=== PATIENT | female | born 1970 | race Hispanic/Latino ===

== ENCOUNTER 2017-01-22 10:59 | Inpatient (IN) | payer MEDICARE, OTHER ==
[2017-01-22 10:59] VITALS: BMI 14.7
--- NOTE | 2017-01-22 11:48 | C.PDOC ---
History Of Present Illness 46 y/o F c PMHx HTN, anxiety, perforated ulcer p/w abdominal pain x 3 weeks. Patient states that she had a perforated ulcer years ago and since then, she has had chronic abdominal issues. She states that she has a current episode of malabsorption, dumping syndrome, and failure to thrive. She states that last night, she had diarrhea while sleeping. She reports vomiting and can not keep any food or medications down, including her PO Zofran. She states that she is new the area and does not know the hospitals in the area. She is trying to find a new PMD, GI, and pain management physician. She states she takes Fentanyl patches prescribed by pain management Roberto but will not go to that physician' s affiliated hospital because it is too far. She specifically requests morphine or dilaudid for her acute pain and when offered morphine, states she does not think it will work because she already has it. She also reports severe migraine headaches which require benadryl. Time Seen by Provider: 01/22/17 11:32 Chief Complaint (Nursing): Abdominal Pain Past Medical History Vital Signs: Last Vital Signs Temp 98.4 F 01/22/17 11:05 Pulse 107 H 01/22/17 11:05 Resp 18 01/22/17 13:25 BP 129/88 01/22/17 13:25 Pulse Ox 97 01/22/17 13:25 - Medical History PMH: Anxiety, Asthma, Depression, HTN Denies: Chronic Kidney Disease Surgical History: Cholecystectomy, Endoscopy Family History: States: No Known Family Hx - Social History Hx Alcohol Use: No Hx Substance Use: No Review Of Systems Except As Marked, All Systems Reviewed And Found Negative. Constitutional: Negative for: Fever Cardiovascular: Negative for: Chest Pain Physical Exam - Physical Exam Additional Physical Exam Comments: Constitutional: No acute distress. Head: Normocephalic. Atraumatic. Eyes: PERRL. ENT: Dry mucous membranes. Neck: Supple. Cardiovascular: Mild tachycardia. Radial pulse 2+ bilaterally. Chest: No tenderness. Respiratory: Clear to auscultation bilaterally. GI: Soft. Epigastric tenderness. Nondistended. Midline surgical scar. Back: No CVA tenderness. Musculoskeletal: No tenderness or swelling of extremities. Skin: No rash. Neurologic: Alert, no focal deficit. ED Course And Treatment - Laboratory Results Result Diagrams: 01/22/17 13:17 01/22/17 13:57 O2 Sat by Pulse Oximetry: 100 Medical Decision Making Medical Decision Making: Patient with 2 recent visits to [facility] in the last [address] performed there: FINDINGS: Lower thorax: Atelectatic changes are identified at the bilateral lung bases. ABDOMEN: Liver: There is hepatomegaly. Mild perihepatic ascites is visualized. Mild intrahepatic biliary dilatation is visualized. Within the right hepatic lobe, there is a 0.6 cm hypodense cyst or hemangioma. Hyperdense calcifications are visualized anterior to the liver. Gallbladder and bile ducts: Surgical clips are identified within the gallbladder fossa, compatible with cholecystectomy. Pancreas: Normal contour, without acute peripancreatic stranding. Spleen: No splenomegaly. Adrenals: No mass. Kidneys and ureters: No hydronephrosis. No solid mass. Stomach and bowel: There is gastric wall thickening, suggestive of gastritis. Wall thickening is also visualized of the distal esophagus, suggestive of esophagitis, although additional pathology cannot be excluded. Surgical clips are identified within the upper abdomen and adjacent to the stomach. Appendix: The appendix is not visualized. PELVIS: Bladder: No mass. Reproductive: The uterus is incompletely visualized, which may be postoperative. There is a hypodense suspected nabothian cyst at the level of the cervix measuring 1.0 x 0.8 cm. ABDOMEN and PELVIS: Intraperitoneal space: No free air. Bones/joints: No acute fracture. Vasculature: There is heterogeneous enhancement of a vessel inferior to the left renal vein, likely due to the timing of injection. There is dilatation of the splenic vein and portal vein, suggestive of portal hypertension. Lymph nodes: There is a mildly enlarged left upper para-aortic lymph node measuring 1.7 x 0.6 cm. This is nonspecific as to etiology. No significant pelvic lymphadenopathy. IMPRESSION: 1. There is hepatomegaly. Mild perihepatic ascites is visualized. Mild intrahepatic biliary dilatation is visualized. Correlation with serum bilirubin is visualized. 2. There is gastric wall thickening, suggestive of gastritis. Wall thickening is also visualized of the distal esophagus, suggestive of esophagitis, although additional pathology cannot be excluded. 3. There is dilatation of the splenic vein and portal vein, suggestive of portal hypertension. 4. Within the right hepatic lobe,, there is a 0.6 cm hypodense cyst or hemangioma. 5. There is a mildly enlarged left upper para-aortic lymph node measuring 1.7 x 0.6 cm. This is nonspecific as to etiology. 6. Additional CT findings described above. No surgical emergencies found on CT for this pain that has been ongoing for 3 weeks as per patient. I informed patient that I will treat dehydration and pain but will not be using opiate medication. Patient with hemeoccult positive stool, history of ulcers, tachycardic on arrival. Will require further evaluation of bleeding source and treatment. At this time, no indication for transfusion. 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 Disposition - Disposition Disposition: HOSPITALIZED Disposition Time: 14:20 Condition: FAIR Forms: [facility] (Palestinian) - Clinical Impression Clinical Impression: GI bleed, Intractable vomiting
[2017-01-22] MEDS ORDERED: DiphenhydrAMINE 50 mg/ml Inj IVP STA (12:21)
[2017-01-22] MEDS ORDERED: Sodium Chloride 0.9% 1,000 ML IV STA (12:21)
[2017-01-22] MEDS ORDERED: Sodium Chloride 0.9% 1,000 ML ONE (12:39)
[2017-01-22] MEDS ORDERED: DiphenhydrAMINE 50 mg/ml Inj ONE (12:40)
[2017-01-22 13:42] LABS: RBC URINE < 1 /hpf (0-3); URINE BILIRUBIN NEGATIVE (NEGATIVE); URINE BLOOD NEGATIVE (NEGATIVE); URINE CALCIUM OXALATE CRYSTALS MOD /hpf (<OCC); URINE COLOR Yellow (YELLOW); URINE GLUCOSE (UA) NORMAL (Normal); URINE KETONE NEGATIVE (NEGATIVE); URINE LEUKOCYTE ESTERASE NEG Leu/uL (Negative); URINE PROTEIN NEGATIVE (NEGATIVE); URINE UROBILINOGEN NORMAL mg/dL (0.2-1.0); WBC URINE 1 /hpf (0-5)
[2017-01-22 13:46] LABS: BASO % 0.7 % (0.0-2.0); EOS # 0.1 K/uL (0.0-0.7); EOS % 2.2 % (0.0-4.0); HEMATOCRIT 44.5 % (34.0-47.0); LYMPH # 1.6 K/uL (1.0-4.3); LYMPH % 24.1 % (20.0-40.0); MEAN CELL VOLUME 95.6 fL (81.0-99.0); MEAN CORPUSCULAR HEMOGLOBIN 31.4 pg (27.0-31.0); MEAN CORPUSCULAR HGB CONC 32.8 g/dL (33.0-37.0); MONO # 0.4 K/uL (0.0-0.8); NRBC % 0.1 % (0.0-2.0); RED CELL DISTRIBUTION WIDTH 15.9 % (11.5-14.5); WHITE BLOOD COUNT 6.5 K/uL (4.8-10.8)
[2017-01-22 14:15] LABS: CHLORIDE 106 mmol/L (98-107); POTASSIUM 3.1 mmol/L (3.6-5.2); SODIUM 145 mmol/L (132-148)
[2017-01-22 14:17] LABS: AST/SGOT 20 U/L (14-36); BILIRUBIN,TOTAL 0.4 mg/dL (0.2-1.3); CARBON DIOXIDE 26 mmol/L (22-30); GFR AFRICAN-AMERICAN > 60
[2017-01-22 14:18] LABS: ALKALINE PHOSPHATASE 86 U/L (38-126); ALT/SGPT 23 U/L (9-52); BLOOD UREA NITROGEN 12 mg/dL (7-17); CALCIUM 8.6 mg/dl (8.6-10.4); GLUCOSE,RANDOM 70 mg/dL (65-105); TOTAL PROTEIN 6.2 g/dL (6.3-8.3)
--- NOTE | 2017-01-22 15:16 | RAD ---
HISTORY: gi bleed COMPARISON: No prior. FINDINGS: LUNGS: Linear atelectasis delete or fibrosis in the medial left base. No acute infiltrate or pleural effusion is identified. PLEURA: No significant pleural effusion identified, no pneumothorax apparent. CARDIOVASCULAR: Prominent cardiac silhouette is appreciated although this is portable technique. No pulmonary vascular derangement identified. OSSEOUS STRUCTURES: No significant abnormalities. VISUALIZED UPPER ABDOMEN: Normal. OTHER FINDINGS: None. IMPRESSION: Linear atelectasis fibrosis is noted at the medial left base. Prominent cardiac silhouette identified. No pulmonary vascular derangement.
[2017-01-22] MEDS: DiphenhydrAMINE 50 mg/ml Inj IVP PRN ×2 (17:31→23:03)
[2017-01-22] MEDS: Potassium Chloride 20 mEq ER Tab PO SCH (23:04)
[2017-01-23] MEDS: Potassium Chloride 20 mEq ER Tab PO SCH (04:30)
[2017-01-23] MEDS: DiphenhydrAMINE 50 mg/ml Inj IVP PRN ×5 (04:30→23:19)
[2017-01-23] MEDS ORDERED: Mometasone 220 mcg/puff-14 puff Inh IH SCH (08:00)
[2017-01-23 08:36] LABS: CHLORIDE 106 mmol/L (98-107); POTASSIUM 3.6 mmol/L (3.6-5.2); SODIUM 145 mmol/L (132-148)
[2017-01-23 08:38] LABS: AST/SGOT 20 U/L (14-36); BILIRUBIN,TOTAL 0.3 mg/dL (0.2-1.3); CARBON DIOXIDE 27 mmol/L (22-30); GFR AFRICAN-AMERICAN > 60
[2017-01-23 08:39] LABS: ALKALINE PHOSPHATASE 81 U/L (38-126); ALT/SGPT 20 U/L (9-52); BLOOD UREA NITROGEN 7 mg/dL (7-17); CALCIUM 8.5 mg/dl (8.6-10.4); GLUCOSE,RANDOM 63 mg/dL (65-105); TOTAL PROTEIN 5.7 g/dL (6.3-8.3)
[2017-01-23] MEDS: Sucralfate 1 gm/10 ml Oral Susp UD PO SCH (09:19)
--- NOTE | 2017-01-23 15:12 | CP.PCM.HP ---
Present on Admission - Present on Admission Any Indicators Present on Admission: No Past Patient History - Infectious Disease Hx of Infectious Diseases: None - Past Medical History & Family History Past Medical History?: Yes - Past Social History Smoking Status: Heavy Smoker > 10 Cigarettes Daily - CARDIAC Hx Hypertension: Yes - PULMONARY Hx Asthma: Yes - NEUROLOGICAL Hx Neurological Disorder: No - HEENT Hx HEENT Problems: Yes Other/Comment: dry eyes - RENAL Hx Chronic Kidney Disease: No - ENDOCRINE/METABOLIC Hx Endocrine Disorders: No - HEMATOLOGICAL/ONCOLOGICAL Hx Blood Disorders: No - INTEGUMENTARY Hx Dermatological Problems: No - MUSCULOSKELETAL/RHEUMATOLOGICAL Hx Musculoskeletal Disorders: Yes Hx Back Pain: Yes Hx Falls: No - GASTROINTESTINAL Hx Gastrointestinal Disorders: Yes Other/Comment: endoscopy, "removed half my stomach" - GENITOURINARY/GYNECOLOGICAL Hx Genitourinary Disorders: No - PSYCHIATRIC Hx Anxiety: Yes Hx Depression: Yes Hx Substance Use: No - SURGICAL HISTORY Hx Cholecystectomy: Yes - ANESTHESIA Hx Anesthesia: Yes Hx Anesthesia Reactions: No Meds Allergies/Adverse Reactions: Allergies Allergy/AdvReac Type Severity Reaction Status Date / Time vancomycin Allergy ANAPHYLAXIS Verified 01/22/17 11:09 Results - Vital Signs Recent Vital Signs: Last Vital Signs Temp 97.5 F L 01/23/17 07:00 Pulse 85 01/23/17 07:00 Resp 21 01/23/17 07:00 BP 129/86 01/23/17 07:00 Pulse Ox 97 01/23/17 07:00 - Labs Result Diagrams: 01/22/17 13:17 01/23/17 08:10 Labs: Laboratory Results - last 24 hr 01/23/17 08:10 Sodium 145 Potassium 3.6 Chloride 106 Carbon Dioxide 27 Anion Gap 15 BUN 7 Creatinine 0.4 L Est GFR ( Amer) > 60 Est GFR (Non-Af Amer) > 60 Random Glucose 63 L Calcium 8.5 L Total Bilirubin 0.3 AST 20 ALT 20 Alkaline Phosphatase 81 Total Protein 5.7 L Albumin 2.9 L Globulin 2.8 Albumin/Globulin Ratio 1.0 Assessment & Plan - Assessment and Plan (Free Text) Plan: GI consultations Protonix Lovenox Zofran IV CT abdomen stat Cipro IV Flagyl IV Medication as ordered Liquid diet Monitor the patient's for abdominal pain Continue pain medications
[2017-01-23] MEDS ORDERED: Ciprofloxacin 400mg/200ml D5W 400 MG/200 ML BAG IVPB SCH (15:15)
[2017-01-23] MEDS: Sodium Chloride 0.9% 1,000 ML IV SCH (15:53)
[2017-01-23] MEDS: Ciprofloxacin 400mg/200ml D5W 400 MG/200 ML BAG IVPB SCH (16:52)
[2017-01-23] MEDS: metroNIDAZOLE IV 500 mg/100 ml 500 MG/100 ML BAG IVPB SCH ×2 (16:52→21:49)
[2017-01-24] MEDS ORDERED: DiphenhydrAMINE 50 mg/ml Inj IVP STA (01:10)
[2017-01-24] MEDS: Ciprofloxacin 400mg/200ml D5W 400 MG/200 ML BAG IVPB SCH ×2 (04:18→16:40)
[2017-01-24] MEDS: DiphenhydrAMINE 50 mg/ml Inj IVP PRN ×4 (04:19→21:01)
[2017-01-24] MEDS: metroNIDAZOLE IV 500 mg/100 ml 500 MG/100 ML BAG IVPB SCH ×3 (05:54→21:02)
[2017-01-24 08:10] LABS: BASO # 0.1 K/uL (0.0-0.2); BASO % 1.1 % (0.0-2.0); EOS # 0.2 K/uL (0.0-0.7); EOS % 2.6 % (0.0-4.0); LYMPH # 1.8 K/uL (1.0-4.3); LYMPH % 30.4 % (20.0-40.0); MEAN CELL VOLUME 95.6 fL (81.0-99.0); MEAN CORPUSCULAR HEMOGLOBIN 31.2 pg (27.0-31.0); MEAN CORPUSCULAR HGB CONC 32.7 g/dL (33.0-37.0); MEAN PLATELET VOLUME 7.3 fL (7.2-11.7); MONO # 0.4 K/uL (0.0-0.8); MONO % 6.9 % (0.0-10.0); RED CELL DISTRIBUTION WIDTH 15.2 % (11.5-14.5); WHITE BLOOD COUNT 5.8 K/uL (4.8-10.8)
--- NOTE | 2017-01-24 08:34 | CP.PCM.CON ---
<Ken Sweeney - Last Filed: 01/24/17 12:50> History of Present Illness - History of Present Illness History of Present Illness: PGY4 Initial GI Consult Note Josette Keys is a 46-year-old female with a past medical history of hypertension, chronic anemia, gastric and esophageal ulcers, gastric perforation with multiple abdominal surgery, and failure to thrive who comes to the emergency room with complaint of left-sided abdominal pain for weeks. She reports that the sharp pain that starts in the epigastric area and radiates to her left upper back and moves up to her shoulder, the intensity of the pain was increasing since onset. She also has been unable to tolerate any oral intake, has been having nausea and vomiting and denies any hematemesis, though she does have a hx of poor PO intake and failure to thrive. She also complains of diarrhea no reports of any melena or bright red blood per rectum. She notes that she has been diagnoised with having dumping syndrome in the past and she normally has x4 loose BM daily. The patient had multiple transfer from nursing homes and hospitals in [facility]. As for her GI, she reports that she was being followed by Dr. Chapa in [place], [place]. She states that she had an endoscopy 2 months ago in and was found to have esophageal ulcers and gastric ulcer that required cauterization therapy. She has been taking Carafate daily, Pepcid and Nexium, and has been on Reglan daily for 5 years. She does report about an 8 pound weight loss. Her last colonoscopy was 4-5 years ago and she was told she had colitis. She was recently admitted to [facility] for similiar complaint, but states that she left because she was not given proper meds at the appropriate times. 01/13/17 CT scan of abdomen and pelvis with oral contrast shows hepatomegaly, mild perihepatic ascites is visualized, mild intrahepatic biliary dilatation is visualized, within the right hepatic lobe there is a 0.6 cm hypodense cyst or hemangioma. Stomach and bowel shows gastric wall thickening, suggestive of gastritis. There is also wall thickening in the distal esophagus, suggestive of esophagitis. Surgical clips are identified within the upper lobe and adjacent to the stomach. Also there is mildly enlarged left upper para-aortic lymph nodes measuring 1.7 x 0.6 cm this is nonspecific as to etiology. No significant pelvic lymphadenopathy. PMHx: Asthma, hypertension, chronic anemia, gastric and esophageal ulcers, weight loss,? Malabsorption, chronic pain, patient is on fentanyl patches PSHx: Partial gastrectomy, patient is unsure if it's a Billroth I or 2, multiple exploratory laparotomies with bowel resection/repair, cholecystectomy Family history: Mother: Hypertension, COPD, [place] Social history: Positive for smoking, denies EtOH or substance abuse Review of systems: 12- point ROS conducted, other than whats previously mentioned above, its otherwise neg Endo Hx: EGD 10/2016 in [facility]: esophagitis and gastric ulcer Colonoscopy 4-5 years ago: colitis? / Past Patient History - Infectious Disease Hx of Infectious Diseases: None - Past Medical History & Family History Past Medical History?: Yes - Past Social History Smoking Status: Heavy Smoker > 10 Cigarettes Daily - CARDIAC Hx Hypertension: Yes - PULMONARY Hx Asthma: Yes - NEUROLOGICAL Hx Neurological Disorder: No - HEENT Hx HEENT Problems: Yes Other/Comment: dry eyes - RENAL Hx Chronic Kidney Disease: No - ENDOCRINE/METABOLIC Hx Endocrine Disorders: No - HEMATOLOGICAL/ONCOLOGICAL Hx Blood Disorders: No - INTEGUMENTARY Hx Dermatological Problems: No - MUSCULOSKELETAL/RHEUMATOLOGICAL Hx Musculoskeletal Disorders: Yes Hx Back Pain: Yes Hx Falls: No - GASTROINTESTINAL Hx Gastrointestinal Disorders: Yes Other/Comment: endoscopy, "removed half my stomach" - GENITOURINARY/GYNECOLOGICAL Hx Genitourinary Disorders: No - PSYCHIATRIC Hx Anxiety: Yes Hx Depression: Yes Hx Substance Use: No - SURGICAL HISTORY Hx Cholecystectomy: Yes - ANESTHESIA Hx Anesthesia: Yes Hx Anesthesia Reactions: No Meds Allergies/Adverse Reactions: Allergies Allergy/AdvReac Type Severity Reaction Status Date / Time vancomycin Allergy ANAPHYLAXIS Verified 01/22/17 11:09 - Medications Medications: Current Medications Atenolol (Tenormin) 25 mg PO DAILY [facility] Last Admin: 01/23/17 09:20 Dose: 25 mg Clotrimazole (Mycelex Hiral) 10 mg PO TID [facility] Last Admin: 01/23/17 17:33 Dose: 10 mg Diphenhydramine HCl (Benadryl) 25 mg IVP Q4H PRN PRN Reason: itchiness Last Admin: 01/24/17 08:17 Dose: 25 mg Famotidine (Pepcid) 20 mg PO DAILY [facility] Last Admin: 01/23/17 09:19 Dose: 20 mg Fentanyl (Duragesic) 1 patch TD Q72H [facility] Gabapentin (Neurontin) 400 mg PO TID [facility] Last Admin: 01/23/17 17:32 Dose: 400 mg Hydromorphone HCl (Dilaudid) 2 mg IVP Q4H PRN PRN Reason: pain Last Admin: 01/24/17 08:16 Dose: 2 mg Metronidazole (Flagyl) 500 mg in 100 mls @ 100 mls/hr IVPB Q8 [facility] Last Admin: 01/24/17 05:54 Dose: 100 mls/hr Sodium Chloride (Sodium Chloride 0.9%) 1,000 mls @ 60 mls/hr IV .[id number] [facility] Last Admin: 01/23/17 15:53 Dose: 60 mls/hr Ciprofloxacin (Cipro 400mg/200ml Dsw) 400 mg in 200 mls @ 133 mls/hr IVPB Q12H [facility] Last Admin: 01/24/17 04:18 Dose: 133 mls/hr Lorazepam (Ativan) 2 mg PO TID [facility] Last Admin: 01/23/17 17:32 Dose: 2 mg Mometasone Furoate (Asmanex Twisthaler 220 Mcg) 1 puff IH RQ12 [facility] Nicotine (Nicoderm Cq) 1 patch TD DAILY [facility] Last Admin: 01/23/17 09:20 Dose: 1 patch Ondansetron HCl (Zofran Inj) 4 mg IVP Q8H PRN PRN Reason: nausea and vomiting Last Admin: 01/24/17 01:40 Dose: 4 mg Pantoprazole Sodium (Protonix Inj) 40 mg IVP DAILY [facility] Last Admin: 01/23/17 09:18 Dose: 40 mg Pneumococcal Polyvalent Vaccine (Pneumovax 23 Vaccine) 0.5 ml IM .ONCE ONE Stop: 01/24/17 10:01 Spironolactone (Aldactone) 25 mg PO DAILY [facility] Last Admin: 01/23/17 09:19 Dose: 25 mg Sucralfate (Carafate Oral Susp) 1 gm PO DAILY [facility] Last Admin: 01/23/17 09:19 Dose: 1 gm Trazodone HCl (Desyrel) 150 mg PO DAILY [facility] Last Admin: 01/23/17 09:27 Dose: Not Given Physical Exam - Constitutional Appears: Unkempt, Older Than Stated Age, Cachectic, Chronically Ill - Head Exam Head Exam: ATRAUMATIC, NORMOCEPHALIC - Eye Exam Eye Exam: Normal appearance - ENT Exam ENT Exam: Mucous Membranes Dry - Cardiovascular Exam Cardiovascular Exam: REGULAR RHYTHM, +S1, +S2 - GI/Abdominal Exam GI & Abdominal Exam: Normal Bowel Sounds, Soft. absent: Distended, Firm, Guarding, Organomegaly, Rigid, Tenderness - Neurological Exam Neurological exam: Alert, Oriented x3 - Psychiatric Exam Psychiatric exam: Depressed, Flat Affect - Skin Skin Exam: Dry, Intact, Normal Color, Warm Results - Vital Signs Recent Vital Signs: Last Vital Signs Temp 98.2 F 01/24/17 07:00 Pulse 80 01/24/17 07:00 Resp 20 01/24/17 07:00 BP 134/80 01/24/17 07:00 Pulse Ox 100 01/24/17 07:00 - Labs Result Diagrams: 01/24/17 07:48 01/24/17 07:48 Labs: Laboratory Results - last 24 hr 01/23/17 01/24/17 01/24/17 08:10 07:48 08:09 WBC 5.8 RBC 4.92 Hgb 15.4 Hct 47.0 MCV 95.6 MCH 31.2 H MCHC 32.7 L RDW 15.2 H Plt Count 202 MPV 7.3 Neut % (Auto) 59.0 Lymph % (Auto) 30.4 Falls % (Auto) 6.9 Eos % (Auto) 2.6 Baso % (Auto) 1.1 Neut # 3.4 Lymph # 1.8 Falls # 0.4 Eos # 0.2 Baso # 0.1 Sodium 145 Potassium 3.6 Chloride 106 Carbon Dioxide 27 Anion Gap 15 BUN 7 Creatinine 0.4 L Est GFR ( Amer) > 60 Est GFR (Non-Af Amer) > 60 Random Glucose 63 L Calcium 8.5 L Total Bilirubin 0.3 AST 20 ALT 20 Alkaline Phosphatase 81 Total Protein 5.7 L Albumin 2.9 L Globulin 2.8 Albumin/Globulin Ratio 1.0 Urine HCG, Qual Negative Assessment & Plan - Assessment and Plan (Free Text) Assessment: Josette Keys is a 46F w/ sig comorbidities including failure to thrive, esophagitis, gastic ulcers, partial gastrectomy who presents with complaints of generalized abd pain, weakness, and decreased appetite. Pt was found to have + FOBT but there was no report of any GI bleed. EGD was performed today; revealed severe esophagitis with white plaques likely 2 /2 candidiasis, severe gastritis with large ulcers in the body and at the anastomotic site. Also noted was a foreign body (bay leaf) in the stomach Esophagitis likely 2/2 Candidiasis Severe Gastritis Large gastric ulcer in the body and at anastomotic site Failure to thrive Acute on chronic Diarrhea, etiology unknown, r/o infectious Malnutrition Nausea hx of partial gastrectomy, 2/2 to porforated gastric ulcer? Plan: -Pain management as per primary team -Recommend nutrition consult -start protonix IV BID 40mg -start diflucan 200mg IV now then 100mg daily -Add reglan TID before meals -advance diet to regular -will need records from previous GI doctor -will hold on any additional imaging -continue abx as per primary -will get stool cultures, r/o c.diff, calprotectin, D/W Dr. Bernal <Dolores HERNANDEZ,Raman - Last Filed: 01/24/17 18:32> Meds - Medications Medications: Current Medications Atenolol (Tenormin) 25 mg PO DAILY [facility] Last Admin: 01/24/17 09:53 Dose: 25 mg Clotrimazole (Mycelex Hiral) 10 mg PO TID [facility] Last Admin: 01/24/17 14:28 Dose: Not Given Diphenhydramine HCl (Benadryl) 25 mg IVP Q4H PRN PRN Reason: itchiness Last Admin: 01/24/17 12:46 Dose: 25 mg Fentanyl (Duragesic) 1 patch TD Q72H [facility] Last Admin: 01/24/17 10:04 Dose: 1 patch Fentanyl (Duragesic) 1 patch TD Q72H [facility] Last Admin: 01/24/17 14:59 Dose: 1 patch Gabapentin (Neurontin) 400 mg PO TID [facility] Last Admin: 01/24/17 18:00 Dose: 400 mg Hydromorphone HCl (Dilaudid) 2 mg IVP Q4H PRN PRN Reason: pain Last Admin: 01/24/17 16:34 Dose: 2 mg Metronidazole (Flagyl) 500 mg in 100 mls @ 100 mls/hr IVPB Q8 [facility] Last Admin: 08/28/17 14:28 Dose: Not Given Sodium Chloride (Sodium Chloride 0.9%) 1,000 mls @ 60 mls/hr IV .[id number] [facility] Last Admin: 01/24/17 09:55 Dose: Not Given Ciprofloxacin (Cipro 400mg/200ml Dsw) 400 mg in 200 mls @ 133 mls/hr IVPB Q12H [facility] Last Admin: 01/24/17 16:40 Dose: 133 mls/hr Fluconazole (Diflucan Iv 200 Mg/100 Ml Ns) 100 mls @ 100 mls/hr IVPB DAILY [facility] Lorazepam (Ativan) 2 mg PO TID [facility] Last Admin: 01/24/17 17:59 Dose: 2 mg Metoclopramide HCl (Reglan) 10 mg IVP ACHS [facility] Last Admin: 01/24/17 16:30 Dose: 10 mg Mometasone Furoate (Asmanex Twisthaler 220 Mcg) 1 puff IH RQ12 [facility] Nicotine (Nicoderm Cq) 1 patch TD DAILY [facility] Last Admin: 01/24/17 09:54 Dose: 1 patch Ondansetron HCl (Zofran Inj) 4 mg IVP Q8H PRN PRN Reason: nausea and vomiting Last Admin: 01/24/17 16:31 Dose: 4 mg Pantoprazole Sodium (Protonix Inj) 40 mg IVP Q12H [facility] Last Admin: 01/24/17 14:28 Dose: Not Given Spironolactone (Aldactone) 25 mg PO DAILY [facility] Last Admin: 01/24/17 10:13 Dose: Not Given Sucralfate (Carafate Oral Susp) 1 gm PO DAILY [facility] Last Admin: 01/24/17 16:34 Dose: Not Given Trazodone HCl (Desyrel) 150 mg PO DAILY [facility] Last Admin: 01/24/17 12:35 Dose: Not Given Results - Vital Signs Recent Vital Signs: Last Vital Signs Temp 98.2 F 01/24/17 16:00 Pulse 87 01/24/17 16:00 Resp 20 01/24/17 16:00 BP 125/76 01/24/17 16:00 Pulse Ox 97 01/24/17 16:00 - Labs Result Diagrams: 01/24/17 07:48 01/24/17 07:48 Labs: Laboratory Results - last 24 hr 01/24/17 01/24/17 01/24/17 07:48 07:48 08:09 WBC 5.8 RBC 4.92 Hgb 15.4 Hct 47.0 MCV 95.6 MCH 31.2 H MCHC 32.7 L RDW 15.2 H Plt Count 202 MPV 7.3 Neut % (Auto) 59.0 Lymph % (Auto) 30.4 Falls % (Auto) 6.9 Eos % (Auto) 2.6 Baso % (Auto) 1.1 Neut # 3.4 Lymph # 1.8 Falls # 0.4 Eos # 0.2 Baso # 0.1 Sodium 138 Potassium 3.8 Chloride 102 Carbon Dioxide 28 Anion Gap 12 BUN 3 L Creatinine 0.4 L Est GFR ( Amer) > 60 Est GFR (Non-Af Amer) > 60 Random Glucose 64 L Calcium 8.0 L Total Bilirubin 0.5 AST 21 ALT 25 Alkaline Phosphatase 78 Total Protein 5.6 L Albumin 2.8 L Globulin 2.8 Albumin/Globulin Ratio 1.0 Urine HCG, Qual Negative Attending/Attestation - Attestation I have personally seen and examined this patient.: Yes I have fully participated in the care of the patient.: Yes I have reviewed all pertinent clinical information: Yes Notes (Text): 01/24/17 18:17 Patient seen and examined in endoscopy this morning. This is a 46 yr old F with significant comorbidities including failure to thrive, esophagitis, gastic ulcers with perforations s/p partial gastrectomy who presents with complaints of generalized abdominal pain, weakness, and decreased appetite. An urgent EGD was performed that revealed Grade c esophagitis with white plaques likely 2/2 candidiasis, large deep ulcers in the body and at the anastomotic site s/p biopsy. Also noted was a foreign body (bay leaf) in the fundus that was removed. Patient has low BMI, low albumin and is clearly malnourished. Will work up for malnourishment with stool infectious work up, start anti fungals for columb[place] and PPI bid for gastric ulcers. Start carafate and clear liquid diet. Avoid NSAID and follow H pylori biopsies. If able to tolerate diet can be discharged with outpatient follow up with previous GI and machine maintenance technician. Protein intake should be atleast 10% of daily caloric intake. Diet should be high in fiber and protein and low in carbohydrates . May give trail of octretide SQ tid for symptomatic relief of dumping syndrome or a trail of cholestyramine may be beneficial. Will follow closely
[2017-01-24 08:40] LABS: CHLORIDE 102 mmol/L (98-107)
[2017-01-24 08:41] LABS: POTASSIUM 3.8 mmol/L (3.6-5.2); SODIUM 138 mmol/L (132-148)
[2017-01-24 08:43] LABS: BILIRUBIN,TOTAL 0.5 mg/dL (0.2-1.3); CARBON DIOXIDE 28 mmol/L (22-30); GFR AFRICAN-AMERICAN > 60
[2017-01-24 08:44] LABS: ALKALINE PHOSPHATASE 78 U/L (38-126); ALT/SGPT 25 U/L (9-52); AST/SGOT 21 U/L (14-36); BLOOD UREA NITROGEN 3 mg/dL (7-17); GLUCOSE,RANDOM 64 mg/dL (65-105); TOTAL PROTEIN 5.6 g/dL (6.3-8.3)
[2017-01-24] MEDS ORDERED: Iodixanol 320 MG/ML 100 ML BOTTLE IV ONE (08:55)
[2017-01-24] MEDS: Sucralfate 1 gm/10 ml Oral Susp UD PO SCH ×2 (09:54→16:34)
[2017-01-24] MEDS: Sodium Chloride 0.9% 1,000 ML IV SCH (09:55)
[2017-01-24] MEDS ORDERED: Pneumococcal 23-Valent Vaccine IM ONE (10:00)
[2017-01-24] MEDS ORDERED: Lactated Ringer's 500 ML IV ONE (11:21)
[2017-01-24] MEDS ORDERED: Fluconazole IV 200mg/100 ml NS 100 ML IVPB ONE (12:15)
[2017-01-24 12:36] VITALS: RESP 20
[2017-01-24] MEDS ORDERED: DiphenhydrAMINE 50 mg/ml Inj IVP ONE (15:45)
[2017-01-24 16:26] VITALS: O2SAT 97
--- NOTE | 2017-01-24 18:41 | CP.PCM.PN ---
Subjective - Date & Time of Evaluation Date of Evaluation: 01/24/17 Time of Evaluation: 09:00 - Subjective Subjective: clinically same Objective - Vital Signs/Intake and Output Vital Signs (last 24 hours): Temp Pulse Resp BP Pulse Ox 98.2 F 87 20 125/76 97 01/24/17 16:00 01/24/17 16:00 01/24/17 16:00 01/24/17 16:00 01/24/17 16:00 Intake and Output: 01/24/17 01/24/17 06:59 18:59 Intake Total 1320 300 Output Total 1300 700 Balance 20 -400 - Medications Medications: Current Medications Atenolol (Tenormin) 25 mg PO DAILY [facility] Last Admin: 01/24/17 09:53 Dose: 25 mg Clotrimazole (Mycelex Hiral) 10 mg PO TID [facility] Last Admin: 01/24/17 14:28 Dose: Not Given Diphenhydramine HCl (Benadryl) 25 mg IVP Q4H PRN PRN Reason: itchiness Last Admin: 01/24/17 12:46 Dose: 25 mg Fentanyl (Duragesic) 1 patch TD Q72H [facility] Last Admin: 01/24/17 10:04 Dose: 1 patch Fentanyl (Duragesic) 1 patch TD Q72H [facility] Last Admin: 01/24/17 14:59 Dose: 1 patch Gabapentin (Neurontin) 400 mg PO TID [facility] Last Admin: 01/24/17 18:00 Dose: 400 mg Hydromorphone HCl (Dilaudid) 2 mg IVP Q4H PRN PRN Reason: pain Last Admin: 01/24/17 16:34 Dose: 2 mg Metronidazole (Flagyl) 500 mg in 100 mls @ 100 mls/hr IVPB Q8 [facility] Last Admin: 01/24/17 14:28 Dose: Not Given Sodium Chloride (Sodium Chloride 0.9%) 1,000 mls @ 60 mls/hr IV .[id number] [facility] Last Admin: 01/24/17 09:55 Dose: Not Given Ciprofloxacin (Cipro 400mg/200ml Dsw) 400 mg in 200 mls @ 133 mls/hr IVPB Q12H [facility] Last Admin: 01/24/17 16:40 Dose: 133 mls/hr Fluconazole (Diflucan Iv 200 Mg/100 Ml Ns) 100 mls @ 100 mls/hr IVPB DAILY [facility] Lorazepam (Ativan) 2 mg PO TID [facility] Last Admin: 01/24/17 17:59 Dose: 2 mg Metoclopramide HCl (Reglan) 10 mg IVP ACHS [facility] Last Admin: 01/24/17 16:30 Dose: 10 mg Mometasone Furoate (Asmanex Twisthaler 220 Mcg) 1 puff IH RQ12 [facility] Nicotine (Nicoderm Cq) 1 patch TD DAILY [facility] Last Admin: 01/24/17 09:54 Dose: 1 patch Ondansetron HCl (Zofran Inj) 4 mg IVP Q8H PRN PRN Reason: nausea and vomiting Last Admin: 01/24/17 16:31 Dose: 4 mg Pantoprazole Sodium (Protonix Inj) 40 mg IVP Q12H [facility] Last Admin: 01/24/17 14:28 Dose: Not Given Spironolactone (Aldactone) 25 mg PO DAILY [facility] Last Admin: 01/24/17 10:13 Dose: Not Given Sucralfate (Carafate Oral Susp) 1 gm PO DAILY [facility] Last Admin: 01/24/17 16:34 Dose: Not Given Trazodone HCl (Desyrel) 150 mg PO DAILY [facility] Last Admin: 01/24/17 12:35 Dose: Not Given - Labs Labs: 01/24/17 07:48 01/24/17 07:48 - Constitutional Appears: Well - Head Exam Head Exam: ATRAUMATIC, NORMAL INSPECTION, NORMOCEPHALIC - Eye Exam Eye Exam: EOMI, Normal appearance, PERRL Pupil Exam: NORMAL ACCOMODATION, PERRL - ENT Exam ENT Exam: Mucous Membranes Moist, Normal Exam - Neck Exam Neck Exam: Full ROM, Normal Inspection. absent: Lymphadenopathy - Respiratory Exam Respiratory Exam: Decreased Breath Sounds - Cardiovascular Exam Cardiovascular Exam: REGULAR RHYTHM, +S1, +S2 - GI/Abdominal Exam GI & Abdominal Exam: Soft, Diminished Bowel Sounds - Rectal Exam Rectal Exam: Deferred
[2017-01-25 00:23] VITALS: BP 130/89; PULSE 98; TEMP 97.1
[2017-01-25] MEDS ORDERED: Fluconazole IV 200mg/100 ml NS 100 ML IVPB SCH (10:00)
== END 2017-01-25 00:45 | disposition left against medical advice (07) | DRG 381 ==
LOC: C.ER 10:59 → C.9E 14:36 → C.3T 15:34
PROVIDERS: ADMIT Internal Medicine Nephrology; ATTEND Internal Medicine Nephrology
PROC: 0DB98ZX Excision of Duodenum, Via Natural or Artificial Opening Endoscopic, Diagnostic (ICD-10-PCS; 2017-01-24)
PROC: 0DB68ZX Excision of Stomach, Via Natural or Artificial Opening Endoscopic, Diagnostic (ICD-10-PCS; 2017-01-24)
PROC: 0DC68ZZ Extirpation of Matter from Stomach, Via Natural or Artificial Opening Endoscopic (ICD-10-PCS; 2017-01-24)
PROC: 0DB28ZX Excision of Middle Esophagus, Via Natural or Artificial Opening Endoscopic, Diagnostic (ICD-10-PCS; principal; 2017-01-24 11:30)
DX: K28.3 Acute gastrojejunal ulcer without hemorrhage or perforation (principal); B37.81 Candidal esophagitis; R18.8 Other ascites; E46 Unspecified protein-calorie malnutrition; T18.2XXA Foreign body in stomach, initial encounter; K76.6 Portal hypertension; K91.1 Postgastric surgery syndromes; K25.3 Acute gastric ulcer without hemorrhage or perforation; K29.70 Gastritis, unspecified, without bleeding; R16.0 Hepatomegaly, not elsewhere classified; N88.8 Other specified noninflammatory disorders of cervix uteri; E86.0 Dehydration; D18.03 Hemangioma of intra-abdominal structures; R59.0 Localized enlarged lymph nodes; R00.0 Tachycardia, unspecified; K52.9 Noninfective gastroenteritis and colitis, unspecified; F17.210 Nicotine dependence, cigarettes, uncomplicated; I10 Essential (primary) hypertension; D64.9 Anemia, unspecified; G43.909 Migraine, unspecified, not intractable, without status migrainosus; J45.909 Unspecified asthma, uncomplicated; K29.80 Duodenitis without bleeding; R62.7 Adult failure to thrive; K28.7 Chronic gastrojejunal ulcer without hemorrhage or perforation; K44.9 Diaphragmatic hernia without obstruction or gangrene; K25.7 Chronic gastric ulcer without hemorrhage or perforation; Z82.49 Family history of ischemic heart disease and other diseases of the circulatory system; Z90.3 Acquired absence of stomach [part of]

== ENCOUNTER 2017-01-25 20:07 | Observation (INO) | payer MEDICARE, OTHER ==
[2017-01-25 20:07] VITALS: BMI 14.7
[2017-01-25] MEDS ORDERED: Sodium Chloride 0.9% 1,000 ML IV STA (21:28)
[2017-01-25] MEDS ORDERED: Sodium Chloride 0.9% 1,000 ML ONE (22:00)
[2017-01-25 22:01] LABS: BASO # 0.1 K/uL (0.0-0.2); BASO % 0.7 % (0.0-2.0); EOS # 0.3 K/uL (0.0-0.7); EOS % 3.6 % (0.0-4.0); HEMATOCRIT 39.2 % (34.0-47.0); LYMPH # 1.9 K/uL (1.0-4.3); LYMPH % 19.5 % (20.0-40.0); MEAN CELL VOLUME 94.2 fL (81.0-99.0); MEAN CORPUSCULAR HEMOGLOBIN 31.3 pg (27.0-31.0); MEAN CORPUSCULAR HGB CONC 33.2 g/dL (33.0-37.0); MEAN PLATELET VOLUME 6.2 fL (7.2-11.7); MONO # 0.7 K/uL (0.0-0.8); MONO % 6.9 % (0.0-10.0); NRBC % 0.1 % (0.0-2.0); RED CELL DISTRIBUTION WIDTH 15.2 % (11.5-14.5); WHITE BLOOD COUNT 9.5 K/uL (4.8-10.8)
--- NOTE | 2017-01-25 22:07 | C.PDOC ---
History Of Present Illness 46 y/o F c PMHx HTN, anemia, gastric/esophageal ulcers, hiatal hernia, gastric perforation, multiple abdominal surgeries, FTT p/w abdominal pain x 4 weeks. Pain is L sided, sharp, radiates to L upper back, associated with vomiting and diarrhea. Patient was admitted to this hospital for same symptoms few days ago and underwent endoscopy while admitted. She states her pain was much relieved by dilaudid with benadryl and Zofran. She states that she was informed that she was going to be discharged home so she left AMA prior to the discharging physician. She states that at home today, she continued to have vomiting, the same abdominal pain and also a black bowel movement. She denies fever, chills, dyspnea. Time Seen by Provider: 01/25/17 20:14 Chief Complaint (Nursing): GI Problem Past Medical History Vital Signs: Last Vital Signs Temp 98.5 F 01/25/17 20:15 Pulse 106 H 01/25/17 20:15 Resp 18 01/25/17 20:15 BP 94/61 L 01/25/17 20:15 Pulse Ox 99 01/25/17 22:25 - Medical History PMH: Anxiety, Asthma, Depression, Gastrointestinal Ulcer, HTN Denies: Chronic Kidney Disease Surgical History: Cholecystectomy, Endoscopy Family History: States: No Known Family Hx - Social History Hx Alcohol Use: No Hx Substance Use: No Review Of Systems Except As Marked, All Systems Reviewed And Found Negative. Constitutional: Negative for: Fever Cardiovascular: Negative for: Chest Pain Physical Exam - Physical Exam Additional Physical Exam Comments: Constitutional: No acute distress. Head: Normocephalic. Atraumatic. Eyes: PERRL. ENT: Dry mucous membranes. Neck: Supple. Cardiovascular: Mild tachycardia. Radial pulse 2+ bilaterally. Chest: No tenderness. Respiratory: Clear to auscultation bilaterally. GI: Soft. Diffuse tenderness mostly epigastric without guarding. Nondistended. Back: No CVA tenderness. Musculoskeletal: No tenderness or swelling of extremities. Skin: No rash. Neurologic: Alert, no focal deficit. ED Course And Treatment - Laboratory Results Result Diagrams: 01/25/17 21:57 01/25/17 21:57 O2 Sat by Pulse Oximetry: 99 (RA) Pulse Ox Interpretation: Normal - Radiology CXR: Interpreted by Me, Viewed By Me CXR Interpretation: Yes: No Acute Disease Medical Decision Making Medical Decision Making: Treated with protonix, Zofran, IVF. Discussed case with Dr. Sweeney, accepts patient for readmission. Disposition - Disposition Disposition: HOSPITALIZED Disposition Time: 22:26 Condition: FAIR Forms: [facility] (Maltese) - Clinical Impression Clinical Impression: Abdominal pain, Intractable vomiting
[2017-01-25 22:08] LABS: CHLORIDE 100 mmol/L (98-107); POTASSIUM 3.2 mmol/L (3.6-5.2); SODIUM 141 mmol/L (132-148)
[2017-01-25 22:10] LABS: BILIRUBIN,TOTAL 0.3 mg/dL (0.2-1.3); GFR AFRICAN-AMERICAN > 60
[2017-01-25 22:11] LABS: ALKALINE PHOSPHATASE 80 U/L (38-126); ALT/SGPT 26 U/L (9-52); AST/SGOT 15 U/L (14-36); BLOOD UREA NITROGEN 14 mg/dL (7-17); CALCIUM 8.5 mg/dl (8.6-10.4); CARBON DIOXIDE 31 mmol/L (22-30); GLUCOSE,RANDOM 93 mg/dL (65-105); TOTAL PROTEIN 5.6 g/dL (6.3-8.3)
[2017-01-25 22:15] LABS: INR 1.2
[2017-01-25] MEDS ORDERED: IRON SUCROSE COMPLEX 200 MG IV SCH (23:15)
[2017-01-25 23:16] LABS: RBC URINE 1 /hpf (0-3); URINE BACTERIA RARE (<OCC); URINE BILIRUBIN NEGATIVE (NEGATIVE); URINE BLOOD NEGATIVE (NEGATIVE); URINE COLOR Yellow (YELLOW); URINE GLUCOSE (UA) NORMAL (Normal); URINE KETONE NEGATIVE (NEGATIVE); URINE LEUKOCYTE ESTERASE NEG Leu/uL (Negative); URINE PROTEIN NEGATIVE (NEGATIVE); URINE UROBILINOGEN NORMAL mg/dL (0.2-1.0); WBC URINE 2 /hpf (0-5)
[2017-01-25] MEDS ORDERED: Imipenem/Cilastatin 500 MG in Dextrose 5% In Water 100 ML IVPB SCH (23:30)
[2017-01-26] MEDS: DiphenhydrAMINE 50 mg/ml Inj IVP SCH ×4 (00:01→12:10)
[2017-01-26] MEDS: Dextrose 5%/0.9% NS 1,000 ML IV SCH ×4 (00:24→18:17)
[2017-01-26 00:43] VITALS: RESP 20
--- NOTE | 2017-01-26 08:57 | CP.PCM.CON ---
<Ken Sweeney - Last Filed: 01/26/17 16:11> History of Present Illness - History of Present Illness History of Present Illness: PGY 4 GI consult Josette Keys is a 46-year-old female with a past medical history of hypertension, chronic anemia, gastric and esophageal ulcers, gastric perforation with multiple abdominal surgery, and failure to thrive who comes to the emergency room with complaint abd pain, nausea, vomiting and dark stools. She left AMA from the hospital 2 days ago after having an EGD. The EGD revealed large gastric ulcers near the pylorus and anastomsis site (no bleeding or stigmata). She was also found to have esophagitis and probab canaditits. It was advised she continue reglan TID, PPI daily and diflucan 100mg daily +/- carafate. She States that post procedure, at home, she had 2-3 dark BM. Denies any BRBPR. She still reports that the sharp pain that starts in the epigastric area and radiates to her left upper back and moves up to her shoulder, the intensity of the pain was increasing since onset. She also has been unable to tolerate any oral intake, has been having nausea and vomiting and denies any hematemesis, though she does have a hx of poor PO intake and failure to thrive. She also complains of diarrhea no reports of any melena or bright red blood per rectum. She notes that she has been diagnoised with having dumping syndrome in the past and she normally has x4 loose BM daily. The patient had multiple transfer from nursing homes and hospitals in [facility]. As for her GI, she reports that she was being followed by Dr. Chapa in [place], [place]. She states that she had an endoscopy 2 months ago in and was found to have esophageal ulcers and gastric ulcer that required cauterization therapy. She does report about an 8 pound weight loss. Her last colonoscopy was 4-5 years ago and she was told she had colitis. She was recently admitted to [facility] for similiar complaint, but states that she left because she was not given proper meds at the appropriate times. 01/13/17 CT scan of abdomen and pelvis with oral contrast shows hepatomegaly, mild perihepatic ascites is visualized, mild intrahepatic biliary dilatation is visualized, within the right hepatic lobe there is a 0.6 cm hypodense cyst or hemangioma. Stomach and bowel shows gastric wall thickening, suggestive of gastritis. There is also wall thickening in the distal esophagus, suggestive of esophagitis. Surgical clips are identified within the upper lobe and adjacent to the stomach. Also there is mildly enlarged left upper para-aortic lymph nodes measuring 1.7 x 0.6 cm this is nonspecific as to etiology. No significant pelvic lymphadenopathy. PMHx: Asthma, hypertension, chronic anemia, gastric and esophageal ulcers, weight loss,? Malabsorption, chronic pain, patient is on fentanyl patches PSHx: Partial gastrectomy, patient is unsure if it's a Billroth I or 2, multiple exploratory laparotomies with bowel resection/repair, cholecystectomy Family history: Mother: Hypertension, COPD, [place] Social history: Positive for smoking, denies EtOH or substance abuse Review of systems: 12- point ROS conducted, other than whats previously mentioned above, its otherwise neg Endo Hx: EGD 12/2726: esophageal canadititis, large gastric ulcers at prepylorus and anastamosis 10/2016 in [facility]: esophagitis and gastric ulcer Colonoscopy 4-5 years ago: colitis? Past Patient History - Infectious Disease Hx of Infectious Diseases: None - Past Medical History & Family History Past Medical History?: Yes - Past Social History Smoking Status: Heavy Smoker > 10 Cigarettes Daily - CARDIAC Hx Hypertension: Yes - PULMONARY Hx Asthma: Yes - NEUROLOGICAL Hx Neurological Disorder: No - HEENT Hx HEENT Problems: Yes Other/Comment: dry eyes - RENAL Hx Chronic Kidney Disease: No - ENDOCRINE/METABOLIC Hx Endocrine Disorders: No - HEMATOLOGICAL/ONCOLOGICAL Hx Blood Disorders: No - INTEGUMENTARY Hx Dermatological Problems: No - MUSCULOSKELETAL/RHEUMATOLOGICAL Hx Musculoskeletal Disorders: Yes Hx Back Pain: Yes Hx Falls: No - GASTROINTESTINAL Hx Gastrointestinal Disorders: Yes Other/Comment: endoscopy, "removed half my stomach". Malabsorption syndrome - GENITOURINARY/GYNECOLOGICAL Hx Genitourinary Disorders: No - PSYCHIATRIC Hx Anxiety: Yes Hx Depression: Yes Hx Substance Use: No - SURGICAL HISTORY Hx Cholecystectomy: Yes - ANESTHESIA Hx Anesthesia: Yes Hx Anesthesia Reactions: No Meds Allergies/Adverse Reactions: Allergies Allergy/AdvReac Type Severity Reaction Status Date / Time vancomycin Allergy ANAPHYLAXIS Verified 01/22/17 11:09 - Medications Medications: Current Medications Atenolol (Tenormin) 25 mg PO DAILY [facility] Diphenhydramine HCl (Benadryl) 50 mg IVP Q6 [facility] Last Admin: 01/26/17 08:50 Dose: 50 mg Ergocalciferol (Drisdol 50,000 Intl Units Cap) 1 cap PO QWK [facility] Famotidine (Pepcid) 1 mg PO DAILY [facility] Fentanyl (Duragesic) 1 patch TD Q72H [facility] Last Admin: 01/26/17 00:39 Dose: Not Given Fentanyl (Duragesic) 1 patch TD Q72H [facility] Last Admin: 01/26/17 00:39 Dose: Not Given Fluconazole (Diflucan) 100 mg PO DAILY [facility] Gabapentin (Neurontin) 400 mg PO TID [facility] Home Med (Cetirizine Hcl [Zyrtec]) 10 mg PO DAILY [facility] Home Med (Fluticasone Propionate [Flovent Diskus]) 1 puff IH DAILY [facility] Home [facility] (Iron Sucrose Complex [Venofer]) 200 mg IV Q30D [facility] Home Med (Omeprazole Magnesium [Prilosec Otc]) 1 tab PO DAILY [facility] Home Med (Promethazine [Phenergan]) 25 mg PO DAILY [facility] Home Med (Trazodone Hcl [Trazodone Hcl]) 150 mg PO DAILY [facility] Hydromorphone HCl (Dilaudid) 2 mg IVP PRN PRN PRN Reason: Pain, severe (8-10) Last Admin: 01/26/17 08:49 Dose: 2 mg Dextrose/Sodium Chloride (Dextrose 5%/0.9% Ns 1000 Ml) 1,000 mls @ 100 mls/hr IV .Q10H [facility] Last Admin: 01/26/17 00:24 Dose: 100 mls/hr Imipenem/Cilastatin Sodium 500 (mg/ Sodium Chloride) 100 mls @ 100 mls/hr IVPB Q6H [facility] Last Admin: 01/26/17 05:24 Dose: 100 mls/hr Lorazepam (Ativan) 1 mg PO TID [facility] Metoclopramide HCl (Reglan) 5 mg PO DAILY [facility] Nicotine (Nicoderm Cq) 1 patch TD DAILY [facility] Spironolactone (Aldactone) 1 mg PO DAILY [facility] Sucralfate (Carafate Oral Susp) 1 gm PO DAILY [facility] Physical Exam - Constitutional Appears: In Acute Distress, Cachectic, Chronically Ill - Head Exam Head Exam: ATRAUMATIC, NORMOCEPHALIC - Eye Exam Eye Exam: Normal appearance - ENT Exam ENT Exam: Mucous Membranes Dry - Respiratory Exam Respiratory Exam: Clear to Auscultation Bilateral, NORMAL BREATHING PATTERN. absent: Rales, Rhonchi, Wheezes - Cardiovascular Exam Cardiovascular Exam: REGULAR RHYTHM, +S1, +S2 - GI/Abdominal Exam GI & Abdominal Exam: Normal Bowel Sounds, Soft, Tenderness. absent: Distended Additional comments: LLQ - Extremities Exam Extremities exam: Positive for: normal inspection, pedal pulses present. Negative for: joint swelling, pedal edema - Neurological Exam Neurological exam: Alert, Oriented x3 - Psychiatric Exam Psychiatric exam: Agitated, Anxious - Skin Skin Exam: Dry, Intact, Pallor, Warm Results - Vital Signs Recent Vital Signs: Last Vital Signs Temp 98.1 F 01/26/17 07:40 Pulse 97 H 01/26/17 07:40 Resp 20 01/26/17 07:40 BP 103/67 01/26/17 07:40 Pulse Ox 94 L 01/26/17 07:40 - Labs Result Diagrams: 01/25/17 21:57 01/26/17 11:36 Labs: Laboratory Results - last 24 hr 01/25/17 01/25/17 23:09 23:09 Urine Color Yellow Urine Clarity Clear Urine pH 5.0 Ur Specific [place] 1.027 Urine Protein Negative Urine Glucose (UA) Normal Urine Ketones Negative Urine Blood Negative Urine Nitrate Negative Urine Bilirubin Negative Urine Urobilinogen Normal Ur Leukocyte Esterase Neg Urine WBC (Auto) 2 Urine RBC (Auto) 1 Ur Squamous Epith Cells 1 Urine Bacteria Rare Urine HCG, Qual Negative Urine Opiates Screen Positive Urine Methadone Screen Negative Ur Barbiturates Screen Negative Ur Phencyclidine Scrn Negative Ur Amphetamines Screen Negative U Benzodiazepines Scrn Positive U Oth Cocaine Metabols Negative U Cannabinoids Screen Negative Assessment & Plan - Assessment and Plan (Free Text) Assessment: Josette Keys is a 46F w/ sig comorbidities including failure to thrive, esophagitis, gastic ulcers, partial gastrectomy who presents with complaints of generalized abd pain, weakness, decreased appetite, amd 2-3 episodes of dark stool. EGD revealed severe esophagitis with white plaques likely 2/2 candidiasis , severe gastritis with large ulcers in the body and at the anastomotic site. Also noted was a foreign body (bay leaf) in the stomach Esophagitis likely 2/2 Candidiasis Severe Gastritis Large gastric ulcer in the body and at anastomotic site Failure to thrive Acute on chronic Diarrhea, etiology unknown, r/o infectious Malnutrition Nausea hx of partial gastrectomy, 2/2 to porforated gastric ulcer? Plan: -Pain management as per primary team -Recommend nutrition consult -Continue PPI daily -diflucan 100mg daily -reglan TID before meals -advance diet to regular -will need records from previous GI doctor -will hold on any additional imaging -continue abx as per primary -hgb stable, no reports of melena or BRBPR overnight or since admission, asked nurse to place a hat in the toliet to eval stool -Continue care as above -Will D/W Dr. Marley <Devin Marley - Last Filed: 01/26/17 18:13> Meds - Medications Medications: Current Medications Atenolol (Tenormin) 25 mg PO DAILY [facility] Last Admin: 01/26/17 11:09 Dose: Not Given Diphenhydramine HCl (Benadryl) 50 mg IVP Q4H [facility] Ergocalciferol (Drisdol 50,000 Intl Units Cap) 1 cap PO QWK [facility] Fentanyl (Duragesic) 1 patch TD Q72H [facility] Last Admin: 01/26/17 00:39 Dose: Not Given Fentanyl (Duragesic) 1 patch TD Q72H [facility] Last Admin: 01/26/17 00:39 Dose: Not Given Fluconazole (Diflucan) 100 mg PO DAILY [facility] Last Admin: 01/26/17 11:08 Dose: Not Given Gabapentin (Neurontin) 400 mg PO TID [facility] Last Admin: 01/26/17 17:42 Dose: 400 mg Hydromorphone HCl (Dilaudid) 2 mg IVP Q4H PRN PRN Reason: Pain, severe (8-10) Last Admin: 01/26/17 13:43 Dose: 2 mg Dextrose/Sodium Chloride (Dextrose 5%/0.9% Ns 1000 Ml) 1,000 mls @ 100 mls/hr IV .Q10H [facility] Last Admin: 01/26/17 12:26 Dose: 100 mls/hr Imipenem/Cilastatin Sodium 500 (mg/ Sodium Chloride) 100 mls @ 100 mls/hr IVPB Q6H [facility] Last Admin: 01/26/17 12:27 Dose: 100 mls/hr Lorazepam (Ativan) 1 mg PO TID [facility] Last Admin: 01/26/17 17:42 Dose: 1 mg Metoclopramide HCl (Reglan) 10 mg IVP ACHS [facility] Last Admin: 01/26/17 17:44 Dose: Not Given Mometasone Furoate (Asmanex Twisthaler 110 Mcg) 1 puff INH RQ12 [facility] Nicotine (Nicoderm Cq) 1 patch TD DAILY [facility] Last Admin: 01/26/17 10:50 Dose: 1 patch Pantoprazole Sodium (Protonix Inj) 40 mg IVP DAILY [facility] Last Admin: 01/26/17 10:51 Dose: 40 mg Spironolactone (Aldactone) 25 mg PO DAILY [facility] Sucralfate (Carafate Oral Susp) 1 gm PO DAILY [facility] Last Admin: 01/26/17 11:07 Dose: Not Given Results - Vital Signs Recent Vital Signs: Last Vital Signs Temp 98 F 01/26/17 14:00 Pulse 87 01/26/17 14:00 Resp 20 01/26/17 14:00 BP 117/78 01/26/17 14:00 Pulse Ox 96 01/26/17 14:00 - Labs Result Diagrams: 01/25/17 21:57 01/26/17 11:36 Labs: Laboratory Results - last 24 hr 01/25/17 01/25/17 01/26/17 23:09 23:09 11:36 Sodium 143 Potassium 3.3 L Chloride 104 Carbon Dioxide 31 H Anion Gap 11 BUN 8 Creatinine 0.4 L Est GFR ( Amer) > 60 Est GFR (Non-Af Amer) > 60 Random Glucose 97 Calcium 8.1 L Urine Color Yellow Urine Clarity Clear Urine pH 5.0 Ur Specific [place] 1.027 Urine Protein Negative Urine Glucose (UA) Normal Urine Ketones Negative Urine Blood Negative Urine Nitrate Negative Urine Bilirubin Negative Urine Urobilinogen Normal Ur Leukocyte Esterase Neg Urine WBC (Auto) 2 Urine RBC (Auto) 1 Ur Squamous Epith Cells 1 Urine Bacteria Rare Urine HCG, Qual Negative Urine Opiates Screen Positive Urine Methadone Screen Negative Ur Barbiturates Screen Negative Ur Phencyclidine Scrn Negative Ur Amphetamines Screen Negative U Benzodiazepines Scrn Positive U Oth Cocaine Metabols Negative U Cannabinoids Screen Negative Attending/Attestation - Attestation I have personally seen and examined this patient.: Yes I have fully participated in the care of the patient.: Yes I have reviewed all pertinent clinical information: Yes Notes (Text): 01/26/17 18:04 I have seen and examined patient with GI fellow. Agree with above documentation with the following additions. In brief, this is a 46 year old female with history of HTN, peptic ulcer disease complicated by perforation and s/p surgical intervention with bilroth who presents to hospital with complaint of abdominal pain, nausea, vomiting, and failure to thrive. She was admitted to hospital 2 days ago, underwent EGD which showed anastomotic ulceration, esophagitis, however left AMA due to not receiving adequate pain medication. She returns now with similar complaints but also reports dark colored stool. She describes a generalized abdominal discomfort associated with nausea and inability to tolerate PO medications or diet. She has had progressive clinical deterioration over the past few months with increased bowel habit frequency and reported 8 pound weight loss. She had a colonoscopy 5 years ago which showed "colitis" as per patient. HTN Peptic ulcer disease s/p bilroth Chronic anemia Weight loss, failure to thrive, cachexia Abdominal pain, nausea, vomiting - s/p EGD showing anastomotic ulceration, esophagitis - Clear liquid diet as tolerated - Continue with PPI and carafate therapies - Anti-emetic therapy PRN - Pain control, would avoid use of narcotic pain medication as this may exacerbate underlying condition - H/H stable, continue to monitor - Awaiting EGD biopsy results - Patient with severe cachexia, will benefit from eyewear manufacturing tech consultation and possible feeding tube placement, however not currently a candidate given underlying ulcer disease. Will continue to monitor patient clinical course.
[2017-01-26] MEDS ORDERED: PROMETHAZINE 25 MG PO SCH (10:00)
[2017-01-26] MEDS ORDERED: FLUTICASONE PROPIONATE IH SCH (10:00)
[2017-01-26] MEDS ORDERED: OMEPRAZOLE MAGNESIUM PO SCH (10:00)
[2017-01-26] MEDS: Sucralfate 1 gm/10 ml Oral Susp UD PO SCH ×2 (10:50→11:07)
--- NOTE | 2017-01-26 11:16 | RAD ---
HISTORY: Intractable vomiting COMPARISON: 01/22/2017. FINDINGS: LUNGS: The lungs are hyperinflated and there is peribronchial thickening with chronic changes in both lungs. There is bibasilar atelectasis/scarring. No focal consolidation. PLEURA: No significant pleural effusion identified, no pneumothorax apparent. CARDIOVASCULAR: Normal. OSSEOUS STRUCTURES: No significant abnormalities. VISUALIZED UPPER ABDOMEN: Normal. OTHER FINDINGS: There are multiple surgical clips in the left upper quadrant. IMPRESSION: No active pulmonary disease. COPD.
[2017-01-26 12:05] LABS: CHLORIDE 104 mmol/L (98-107); POTASSIUM 3.3 mmol/L (3.6-5.2); SODIUM 143 mmol/L (132-148)
[2017-01-26 12:08] LABS: BLOOD UREA NITROGEN 8 mg/dL (7-17); CALCIUM 8.1 mg/dl (8.6-10.4); CARBON DIOXIDE 31 mmol/L (22-30); GFR AFRICAN-AMERICAN > 60; GLUCOSE,RANDOM 97 mg/dL (65-105)
[2017-01-26] MEDS ORDERED: IRON SUCROSE COMPLEX 200 MG IV SCH (13:15)
[2017-01-26] MEDS: DiphenhydrAMINE 50 mg/ml Inj IVP PRN ×2 (18:05→22:37)
--- NOTE | 2017-01-26 18:15 | CP.PCM.HP ---
Past Patient History - Infectious Disease Hx of Infectious Diseases: None - Past Medical History & Family History Past Medical History?: Yes - Past Social History Smoking Status: Heavy Smoker > 10 Cigarettes Daily - CARDIAC Hx Hypertension: Yes - PULMONARY Hx Asthma: Yes - NEUROLOGICAL Hx Neurological Disorder: No - HEENT Hx HEENT Problems: Yes Other/Comment: dry eyes - RENAL Hx Chronic Kidney Disease: No - ENDOCRINE/METABOLIC Hx Endocrine Disorders: No - HEMATOLOGICAL/ONCOLOGICAL Hx Blood Disorders: No - INTEGUMENTARY Hx Dermatological Problems: No - MUSCULOSKELETAL/RHEUMATOLOGICAL Hx Musculoskeletal Disorders: Yes Hx Back Pain: Yes Hx Falls: No - GASTROINTESTINAL Hx Gastrointestinal Disorders: Yes Other/Comment: endoscopy, "removed half my stomach". Malabsorption syndrome - GENITOURINARY/GYNECOLOGICAL Hx Genitourinary Disorders: No - PSYCHIATRIC Hx Anxiety: Yes Hx Depression: Yes Hx Substance Use: No - SURGICAL HISTORY Hx Cholecystectomy: Yes - ANESTHESIA Hx Anesthesia: Yes Hx Anesthesia Reactions: No Meds Allergies/Adverse Reactions: Allergies Allergy/AdvReac Type Severity Reaction Status Date / Time vancomycin Allergy ANAPHYLAXIS Verified 01/22/17 11:09 Physical Exam - Constitutional Appears: Well - Head Exam Head Exam: ATRAUMATIC, NORMAL INSPECTION, NORMOCEPHALIC - Eye Exam Eye Exam: EOMI, Normal appearance, PERRL Pupil Exam: NORMAL ACCOMODATION, PERRL - ENT Exam ENT Exam: Mucous Membranes Moist, Normal Exam - Neck Exam Neck exam: Positive for: Normal Inspection - Respiratory Exam Respiratory Exam: Decreased Breath Sounds - Cardiovascular Exam Cardiovascular Exam: REGULAR RHYTHM, +S1, +S2 - GI/Abdominal Exam GI & Abdominal Exam: Diminished Bowel Sounds, Soft - Rectal Exam Rectal Exam: Deferred Results - Vital Signs Recent Vital Signs: Last Vital Signs Temp 98 F 01/26/17 14:00 Pulse 87 01/26/17 14:00 Resp 20 01/26/17 14:00 BP 117/78 01/26/17 14:00 Pulse Ox 96 01/26/17 14:00 - Labs Result Diagrams: 01/25/17 21:57 01/26/17 11:36 Labs: Laboratory Results - last 24 hr 01/25/17 01/25/17 01/26/17 23:09 23:09 11:36 Sodium 143 Potassium 3.3 L Chloride 104 Carbon Dioxide 31 H Anion Gap 11 BUN 8 Creatinine 0.4 L Est GFR ( Amer) > 60 Est GFR (Non-Af Amer) > 60 Random Glucose 97 Calcium 8.1 L Urine Color Yellow Urine Clarity Clear Urine pH 5.0 Ur Specific [place] 1.027 Urine Protein Negative Urine Glucose (UA) Normal Urine Ketones Negative Urine Blood Negative Urine Nitrate Negative Urine Bilirubin Negative Urine Urobilinogen Normal Ur Leukocyte Esterase Neg Urine WBC (Auto) 2 Urine RBC (Auto) 1 Ur Squamous Epith Cells 1 Urine Bacteria Rare Urine HCG, Qual Negative Urine Opiates Screen Positive Urine Methadone Screen Negative Ur Barbiturates Screen Negative Ur Phencyclidine Scrn Negative Ur Amphetamines Screen Negative U Benzodiazepines Scrn Positive U Oth Cocaine Metabols Negative U Cannabinoids Screen Negative
--- NOTE | 2017-01-26 18:55 | CP.PCM.CON ---
History of Present Illness - History of Present Illness History of Present Illness: 46F w/ sig comorbidities including failure to thrive, esophagitis, gastic ulcers , partial gastrectomy who presents with complaints of generalized abd pain, weakness, decreased appetite, amd 2-3 episodes of dark stool. EGD revealed severe esophagitis with white plaques likely 2/2 candidiasis, severe gastritis with large ulcers in the body and at the anastomotic site. Also noted was a foreign body (bay leaf) in the stomach PMHx: Asthma, hypertension, chronic anemia, gastric and esophageal ulcers, weight loss,? Malabsorption, chronic pain, patient is on fentanyl patches PSHx: Partial gastrectomy, patient is unsure if it's a Billroth I or 2, multiple exploratory laparotomies with bowel resection/repair, cholecystectomy Family history: Mother: Hypertension, COPD, [place] Social history: Positive for smoking, denies EtOH or substance abuse Review of systems: 12- point ROS conducted, other than whats previously mentioned above, its otherwise neg Review of Systems - Constitutional Constitutional: absent: Chills, Fever - EENT Eyes: absent: As Per HPI, Blind Spots, Blurred Vision, Change in Vision, Decreased Night Vision, Diplopia, Discharge, Dry Eye, Exophthalmos, Floaters, Irritation, Itchy Eyes, Loss of Peripheral Vision, Pain, Photophobia, Requires Corrective Lenses, Sees Flashes, Spots in Vision, Tunnel Vision, Other Visual Disturbances, Loss of Vision, Other Ears: absent: As Per HPI, Decreased Hearing, Ear Discharge, Ear Pain, Tinnitus, Abnormal Hearing, Disequilibrium, Dizziness, Other Nose/Mouth/Throat: absent: As Per HPI, Epistaxis, Nasal Congestion, Nasal Discharge, Nasal Obstruction, Nasal Trauma, Nose Pain, Post Nasal Drip, Sinus Pain, Sinus Pressure, Bleeding Gums, Change in Voice, Dental Pain, Dry Mouth, Dysphagia, Halitosis, Hoarsness, Lip Swelling, Mouth Lesions, Mouth Pain, Odynophagia, Sore Throat, Throat Swelling, Tongue Swelling, Facial Pain, Neck Pain, Neck Mass, Other - Breasts Breasts: absent: As Per HPI, Change in Shape, Mass, Pain, Nipple Discharge, Nipple Inversion, Skin Changes, Swelling, Other - Cardiovascular Cardiovascular: absent: As Per HPI, Acrocyanosis, Chest Pain, Chest Pain at Rest , Chest Pain with Activity, Claudication, Diaphoresis, Dyspnea, Dyspnea on Exertion, Edema, Irregular Heart Rhythm, Pain Radiating to Arm/Neck/Jaw, Leg Edema, Leg Ulcers, Lightheadedness, Orthopnea, Palpitations, Paroxysmal Nocturnal Dyspnea, Pedal Edema, Radiating Pain, Rapid Heart Rate, Slow Heart Rate, Syncope, Other - Respiratory Respiratory: absent: As Per HPI, Cough, Dyspnea, Hemoptysis, Dyspnea on Exertion , Wheezing, Snoring, Stridor, Pain on Inspiration, Chest Congestion, Excessive Mucous Production, Change in Mucous Color, Pain with Coughing, Other - Gastrointestinal Gastrointestinal: As Per HPI - Genitourinary Genitourinary: absent: As Per HPI, Change in Urinary Stream, Difficulty Urinating, Dysuria, Flank Pain, Hematuria, Pyuria, Nocturia, Urinary Incontinence, Urinary Frequency, Urinary Hesitance, Urinary Urgency, Voiding Freq/Small Amts, Freq UTI, Hx Renal/Bladder Calculi, Hx /Renal Surgery, Bladder Distension, Other - Reproductive: Female Reproductive:Female: absent: As Per HPI, Amenorrhea, Amenorrhea/ Control, Currently Menstual, Cycle <21 Days, Cycle >35 Days, Cycle Variable, Menses 1-7 Days, Menses >/= 8 Days, Menses Variable, Cycle > 4 Weeks Between, No Menses for 6 Months, Heavy Menses, Light Menses, Normal Menses, Spotting Between Cycles , S/P Hysterectomy, Menopausal, Post Menopausal, Premenarche, Abnormal Vaginal Bleeding, Dysmenorrhea, Dyspareunia, Genital Lesions, Genital Pruritis, Pelvic Pain, Prolapse Symptoms, Sexual Dysfunction, Vaginal Discharge, Vaginal Dryness , Vaginal Odor, Vaginal Pruritis, Other - Menstruation Menstruation: absent: As Per HPI, Amenorrhea, Amenorrhea/ Control, Currently Menstual, Cycle <21 Days, Cycle >35 Days, Cycle Variable, Menses 1-7 Days, Menses >/= 8 Days, Menses Variable, Cycle > 4 Weeks Between, No Menses for 6 Months, Heavy Menses, Light Menses, Normal Menses, Spotting Between Cycles , S/P Hysterectomy, Menopausal, Post Menopausal, Premenarche, Abnormal Vaginal Bleeding, Dysmenorrhea, Other - Musculoskeletal Musculoskeletal: absent: As Per HPI, Abnormal Gait, Arthralgias, Atrophy, Back Pain, Deformity, Joint Swelling, Limited Range of Motion, Loss of Height, Muscle Cramps, Muscle Weakness, Myalgias, Neck Pain, Numbness, Radiating Pain into Limb, Stiffness, Tingling, Other - Integumentary Integumentary: absent: As Per HPI, Acne, Alopecia, Bleeding Lesions, Change in Hair, Change in Nails, Change in Pigmentation, Changing Lesions, Dry Skin, Erythema, Furuncle, Hirsutism, Lesions, New Lesions, Non-Healing Lesions, Photosensitivity, Pruritus, Rash, Skin Pain, Skin Ulcer, Sores, Striae, Swelling , Unusual Bruising, Wounds, Jaundice, Other - Neurological Neurological: absent: As Per HPI, Abnormal Gait, Abnormal Hearing, Abnormal Movements, Abnormal Speech, Behavioral Changes, Burning Sensations, Confusion, Convulsions, Disequilibrium, Dizziness, Numbness, Focal Weakness, Frequent Falls , Headaches, Lack of Coordination, Loss of Vision, Memory Loss, Paresthesias, Radicular Pain, Restless Legs, Sensory Deficit, Syncope, Tingling, Tremor, Vertigo, Weakness, Other Visual Disturbances, Other - Psychiatric Psychiatric: As Per HPI - Endocrine Endocrine: absent: As Per HPI, Change in Body Appearance, Change in Libido, Cold Intolorance, Deepening of Voice, Excessive Sweating, Fatigue, Flushing, Heat Intolorance, Increase in Ring/Shoe/Hat Size, Palpitations, Polydipsia, Polyphagia, Polyuria, Other - Hematologic/Lymphatic Hematologic: absent: As Per HPI, Easy Bleeding, Easy Bruising, Lymphadenopathy, Other Past Patient History - Infectious Disease Hx of Infectious Diseases: None - Past Medical History & Family History Past Medical History?: Yes - Past Social History Smoking Status: Heavy Smoker > 10 Cigarettes Daily - CARDIAC Hx Hypertension: Yes - PULMONARY Hx Asthma: Yes - NEUROLOGICAL Hx Neurological Disorder: No - HEENT Hx HEENT Problems: Yes Other/Comment: dry eyes - RENAL Hx Chronic Kidney Disease: No - ENDOCRINE/METABOLIC Hx Endocrine Disorders: No - HEMATOLOGICAL/ONCOLOGICAL Hx Blood Disorders: No - INTEGUMENTARY Hx Dermatological Problems: No - MUSCULOSKELETAL/RHEUMATOLOGICAL Hx Musculoskeletal Disorders: Yes Hx Back Pain: Yes Hx Falls: No - GASTROINTESTINAL Hx Gastrointestinal Disorders: Yes Other/Comment: endoscopy, "removed half my stomach". Malabsorption syndrome - GENITOURINARY/GYNECOLOGICAL Hx Genitourinary Disorders: No - PSYCHIATRIC Hx Anxiety: Yes Hx Depression: Yes Hx Substance Use: No - SURGICAL HISTORY Hx Cholecystectomy: Yes - ANESTHESIA Hx Anesthesia: Yes Hx Anesthesia Reactions: No Meds Allergies/Adverse Reactions: Allergies Allergy/AdvReac Type Severity Reaction Status Date / Time vancomycin Allergy ANAPHYLAXIS Verified 01/22/17 11:09 - Medications Medications: Current Medications Atenolol (Tenormin) 25 mg PO DAILY [facility] Last Admin: 01/26/17 11:09 Dose: Not Given Diphenhydramine HCl (Benadryl) 50 mg IVP Q4H PRN Last Admin: 01/26/17 18:05 Dose: 50 mg Ergocalciferol (Drisdol 50,000 Intl Units Cap) 1 cap PO QWK [facility] Fentanyl (Duragesic) 1 patch TD Q72H [facility] Last Admin: 01/26/17 00:39 Dose: Not Given Fentanyl (Duragesic) 1 patch TD Q72H [facility] Last Admin: 01/26/17 00:39 Dose: Not Given Fluconazole (Diflucan) 100 mg PO DAILY [facility] Last Admin: 01/26/17 11:08 Dose: Not Given Gabapentin (Neurontin) 400 mg PO TID [facility] Last Admin: 01/26/17 17:42 Dose: 400 mg Hydromorphone HCl (Dilaudid) 2 mg IVP Q4H PRN PRN Reason: Pain, severe (8-10) Last Admin: 01/26/17 18:05 Dose: 2 mg Dextrose/Sodium Chloride (Dextrose 5%/0.9% Ns 1000 Ml) 1,000 mls @ 100 mls/hr IV .Q10H [facility] Last Admin: 01/26/17 18:17 Dose: Not Given Imipenem/Cilastatin Sodium 500 (mg/ Sodium Chloride) 100 mls @ 100 mls/hr IVPB Q6H [facility] Last Admin: 01/26/17 18:16 Dose: 100 mls/hr Lorazepam (Ativan) 1 mg PO TID [facility] Last Admin: 01/26/17 17:42 Dose: 1 mg Metoclopramide HCl (Reglan) 10 mg IVP ACHS [facility] Last Admin: 01/26/17 17:44 Dose: Not Given Mometasone Furoate (Asmanex Twisthaler 110 Mcg) 1 puff INH RQ12 [facility] Nicotine (Nicoderm Cq) 1 patch TD DAILY [facility] Last Admin: 01/26/17 10:50 Dose: 1 patch Pantoprazole Sodium (Protonix Inj) 40 mg IVP DAILY [facility] Last Admin: 01/26/17 10:51 Dose: 40 mg Spironolactone (Aldactone) 25 mg PO DAILY [facility] Sucralfate (Carafate Oral Susp) 1 gm PO DAILY [facility] Last Admin: 01/26/17 11:07 Dose: Not Given Physical Exam - Constitutional Appears: Non-toxic, Cachectic, Chronically Ill - Head Exam Head Exam: NORMOCEPHALIC - Eye Exam Eye Exam: PERRL. absent: Scleral icterus - ENT Exam ENT Exam: Mucous Membranes Dry, Normal External Ear Exam - Neck Exam Neck exam: Negative for: Lymphadenopathy - Respiratory Exam Respiratory Exam: Decreased Breath Sounds - Cardiovascular Exam Cardiovascular Exam: REGULAR RHYTHM - GI/Abdominal Exam GI & Abdominal Exam: Diminished Bowel Sounds, Soft. absent: Tenderness - Rectal Exam Rectal Exam: Deferred - Exam Exam: NORMAL INSPECTION - Extremities Exam Extremities exam: Negative for: pedal edema - Back Exam Back exam: absent: CVA tenderness (L), CVA tenderness (R) - Neurological Exam Neurological exam: Alert, CN II-XII Intact, Oriented x3, Reflexes Normal - Psychiatric Exam Psychiatric exam: Normal Mood Results - Vital Signs Recent Vital Signs: Last Vital Signs Temp 98 F 01/26/17 14:00 Pulse 87 01/26/17 14:00 Resp 20 01/26/17 14:00 BP 117/78 01/26/17 14:00 Pulse Ox 96 01/26/17 14:00 - Labs Result Diagrams: 01/25/17 21:57 01/26/17 11:36 Labs: Laboratory Results - last 24 hr 01/25/17 01/25/17 01/26/17 23:09 23:09 11:36 Sodium 143 Potassium 3.3 L Chloride 104 Carbon Dioxide 31 H Anion Gap 11 BUN 8 Creatinine 0.4 L Est GFR ( Amer) > 60 Est GFR (Non-Af Amer) > 60 Random Glucose 97 Calcium 8.1 L Urine Color Yellow Urine Clarity Clear Urine pH 5.0 Ur Specific [place] 1.027 Urine Protein Negative Urine Glucose (UA) Normal Urine Ketones Negative Urine Blood Negative Urine Nitrate Negative Urine Bilirubin Negative Urine Urobilinogen Normal Ur Leukocyte Esterase Neg Urine WBC (Auto) 2 Urine RBC (Auto) 1 Ur Squamous Epith Cells 1 Urine Bacteria Rare Urine HCG, Qual Negative Urine Opiates Screen Positive Urine Methadone Screen Negative Ur Barbiturates Screen Negative Ur Phencyclidine Scrn Negative Ur Amphetamines Screen Negative U Benzodiazepines Scrn Positive U Oth Cocaine Metabols Negative U Cannabinoids Screen Negative Assessment & Plan (1) Esophageal candidiasis Status: Acute (2) Abdominal pain Status: Acute (3) Intractable vomiting Status: Acute (4) GI bleed Status: Acute - Assessment and Plan (Free Text) Assessment: NO FEVER OR LEUKOCYTOSIS CAN D/C IV ANTIBIOTICS IF CULTURES NEGATIVE
[2017-01-26] MEDS ORDERED: Mometasone 110 mcg/puff-30 puff Inh INH SCH (20:00)
--- NOTE | 2017-01-26 20:22 | CARD ---
APPROVED REPORT EKG Measurement Heart [id number] <Conclusion> Normal sinus rhythm Prolonged QT Abnormal ECG
[2017-01-26] MEDS ORDERED: Potassium Chloride 20 mEq ER Tab PO ONE (22:00)
[2017-01-27] MEDS: DiphenhydrAMINE 50 mg/ml Inj IVP PRN ×4 (05:14→23:58)
--- NOTE | 2017-01-27 07:07 | CP.PCM.PN ---
<Ken Sweeney - Last Filed: 01/27/17 07:09> Subjective - Date & Time of Evaluation Date of Evaluation: 01/27/17 Time of Evaluation: 07:00 - Subjective Subjective: PGY4 Pt seen and examined bedside Still has abd pain no appetite still cannot tolerate certain foods wants to transition to reg diet to have more options Still has heart burn 10-point ROS conducted, neg other than above Objective - Vital Signs/Intake and Output Vital Signs (last 24 hours): Temp Pulse Resp BP Pulse Ox 98.1 F 94 H 20 135/91 H 95 01/26/17 23:55 01/26/17 23:55 01/26/17 23:55 01/26/17 23:55 01/26/17 23:55 Intake and Output: 01/27/17 01/27/17 06:59 18:59 Intake Total 1200 Balance 1200 - Medications Medications: Current Medications Atenolol (Tenormin) 25 mg PO DAILY [facility] Last Admin: 01/26/17 11:09 Dose: Not Given Diphenhydramine HCl (Benadryl) 50 mg IVP Q4H PRN Last Admin: 01/27/17 05:14 Dose: 50 mg Ergocalciferol (Drisdol 50,000 Intl Units Cap) 1 cap PO QWK [facility] Fentanyl (Duragesic) 1 patch TD Q72H [facility] Last Admin: 01/26/17 00:39 Dose: Not Given Fentanyl (Duragesic) 1 patch TD Q72H [facility] Last Admin: 01/26/17 00:39 Dose: Not Given Gabapentin (Neurontin) 400 mg PO TID [facility] Last Admin: 01/26/17 17:42 Dose: 400 mg Hydromorphone HCl (Dilaudid) 2 mg IVP Q4H PRN PRN Reason: Pain, severe (8-10) Last Admin: 01/27/17 05:13 Dose: 2 mg Dextrose/Sodium Chloride (Dextrose 5%/0.9% Ns 1000 Ml) 1,000 mls @ 100 mls/hr IV .Q10H [facility] Last Admin: 01/26/17 18:17 Dose: Not Given Cefazolin Sodium 500 mg/ (Sodium Chloride) 100 mls @ 100 mls/hr IVPB Q8H [facility] Last Admin: 01/27/17 05:13 Dose: 100 mls/hr Fluconazole 100 mg/ (Miscellaneous) 50 mls @ 100 mls/hr IVPB DAILY [facility] Lorazepam (Ativan) 1 mg PO TID [facility] Last Admin: 01/26/17 17:42 Dose: 1 mg Metoclopramide HCl (Reglan) 10 mg IVP ACHS [facility] Last Admin: 01/26/17 21:30 Dose: Not Given Mometasone Furoate (Asmanex Twisthaler 110 Mcg) 1 puff INH RQ12 [facility] Nicotine (Nicoderm Cq) 1 patch TD DAILY [facility] Last Admin: 01/26/17 10:50 Dose: 1 patch Ondansetron HCl (Zofran Inj) 4 mg IVP Q4H PRN PRN Reason: Nausea/Vomiting Last Admin: 01/27/17 05:13 Dose: 4 mg Pantoprazole Sodium (Protonix Inj) 40 mg IVP DAILY [facility] Last Admin: 01/26/17 10:51 Dose: 40 mg Spironolactone (Aldactone) 25 mg PO DAILY [facility] Sucralfate (Carafate Oral Susp) 1 gm PO DAILY [facility] Last Admin: 01/26/17 11:07 Dose: Not Given - Labs Labs: 01/26/17 11:36 PT 13.8 SECONDS (9.7-12.2) H 01/25/17 21:57 INR 1.2 01/25/17 21:57 APTT 33 SECONDS (21-34) 01/25/17 21:57 - Constitutional Appears: No Acute Distress, Cachectic, Chronically Ill - Head Exam Head Exam: ATRAUMATIC, NORMOCEPHALIC - Eye Exam Eye Exam: Normal appearance - ENT Exam ENT Exam: Mucous Membranes Moist, Normal Exam - Respiratory Exam Respiratory Exam: Clear to Ausculation Bilateral, NORMAL BREATHING PATTERN. absent: Rales, Rhonchi, Wheezes, Respiratory Distress - Cardiovascular Exam Cardiovascular Exam: REGULAR RHYTHM, +S1, +S2 - GI/Abdominal Exam GI & Abdominal Exam: Soft, Normal Bowel Sounds. absent: Tenderness, Organomegaly - Extremities Exam Extremities Exam: absent: Joint Swelling, Pedal Edema - Neurological Exam Neurological Exam: Alert, Awake, Oriented x3 - Psychiatric Exam Psychiatric exam: Normal Affect, Normal Mood - Skin Skin Exam: Dry, Intact, Normal Color, Warm Assessment and Plan - Assessment and Plan (Free Text) Assessment: Josette Keys is a 46F w/ sig comorbidities including failure to thrive, esophagitis, gastic ulcers, partial gastrectomy who presents with complaints of generalized abd pain, weakness, decreased appetite, amd 2-3 episodes of dark stool. EGD revealed severe esophagitis with white plaques likely 2/2 candidiasis , severe gastritis with large ulcers in the body and at the anastomotic site. Also noted was a foreign body (bay leaf) in the stomach Esophagitis likely 2/2 Candidiasis Severe Gastritis Large gastric ulcer in the body and at anastomotic site Failure to thrive Acute on chronic Diarrhea, etiology unknown, r/o infectious Malnutrition Nausea hx of partial gastrectomy, 2/2 to porforated gastric ulcer? Plan: -Pain management as per primary team -Recommend nutrition consult -Continue PPI IV daily -diflucan 100mg IV daily -reglan TID before meals -advance diet to regular -will need records from previous GI doctor -will hold on any additional imaging -continue abx as per primary -hgb stable, no reports of melena or BRBPR overnight or since admission, asked nurse to place a hat in the toliet to eval stool -Continue care as above Will D/W <Devin Marley - Last Filed: 01/27/17 15:03> Objective - Vital Signs/Intake and Output Vital Signs (last 24 hours): Temp Pulse Resp BP Pulse Ox 97.8 F 90 20 144/88 95 01/27/17 07:11 01/27/17 07:11 01/27/17 07:11 01/27/17 07:11 01/27/17 07:11 Intake and Output: 01/27/17 01/27/17 06:59 18:59 Intake Total 1200 Balance 1200 - Medications Medications: Current Medications Atenolol (Tenormin) 25 mg PO DAILY [facility] Last Admin: 01/27/17 11:21 Dose: 25 mg Diphenhydramine HCl (Benadryl) 50 mg IVP Q4H PRN Last Admin: 01/27/17 11:24 Dose: 50 mg Ergocalciferol (Drisdol 50,000 Intl Units Cap) 1 cap PO QWK [facility] Fentanyl (Duragesic) 1 patch TD Q72H [facility] Last Admin: 01/26/17 00:39 Dose: Not Given Fentanyl (Duragesic) 1 patch TD Q72H [facility] Last Admin: 01/26/17 00:39 Dose: Not Given Gabapentin (Neurontin) 400 mg PO TID [facility] Last Admin: 01/27/17 14:54 Dose: 400 mg Hydromorphone HCl (Dilaudid) 2 mg IVP Q4H PRN PRN Reason: Pain, severe (8-10) Last Admin: 01/27/17 11:23 Dose: 2 mg Dextrose/Sodium Chloride (Dextrose 5%/0.9% Ns 1000 Ml) 1,000 mls @ 100 mls/hr IV .Q10H [facility] Last Admin: 01/27/17 09:58 Dose: 100 mls/hr Cefazolin Sodium 500 mg/ (Sodium Chloride) 100 mls @ 100 mls/hr IVPB Q8H [facility] Last Admin: 01/27/17 12:40 Dose: Not Given Fluconazole 100 mg/ (Miscellaneous) 50 mls @ 100 mls/hr IVPB DAILY [facility] Last Admin: 01/27/17 11:22 Dose: 100 mls/hr Lorazepam (Ativan) 1 mg PO TID [facility] Last Admin: 01/27/17 14:54 Dose: 1 mg Metoclopramide HCl (Reglan) 10 mg IVP ACHS [facility] Last Admin: 01/27/17 11:39 Dose: Not Given Mometasone Furoate (Asmanex Twisthaler 110 Mcg) 1 puff INH RQ12 [facility] Nicotine (Nicoderm Cq) 1 patch TD DAILY [facility] Last Admin: 01/27/17 11:22 Dose: 1 patch Ondansetron HCl (Zofran Inj) 4 mg IVP Q4H PRN PRN Reason: Nausea/Vomiting Last Admin: 01/27/17 11:38 Dose: 4 mg Pantoprazole Sodium (Protonix Ec Tab) 40 mg PO BID [facility] Spironolactone (Aldactone) 25 mg PO DAILY [facility] Last Admin: 01/27/17 11:21 Dose: 25 mg Sucralfate (Carafate Oral Susp) 1 gm PO ACHS [facility] Last Admin: 01/27/17 11:21 Dose: 1 gm - Labs Labs: 01/27/17 11:31 01/27/17 11:31 PT 13.8 SECONDS (9.7-12.2) H 01/25/17 21:57 INR 1.2 01/25/17 21:57 APTT 33 SECONDS (21-34) 01/25/17 21:57 Attending/Attestation - Attestation I have personally seen and examined this patient.: Yes I have fully participated in the care of the patient.: Yes I have reviewed all pertinent clinical information, including history, physical exam and plan: Yes Notes (Text): 01/27/17 14:55 I have seen and examined patient with GI fellow. Patient is seen ambulating in hallway, continues to endorse generalized abdominal discomfort and nausea. She had one episode of loose, dark colored bowel movement this afternoon. She was able to eat pudding and juice today without difficulty, though still not interested in consuming solid food. History of peptic ulcer disease complicated by perforation s/p Billroth I Abdominal pain - s/p EGD showing anastomotic and gastric ulcers, esophagitis ( candidiasis) Cachexia, failure to thrive, malnutrition - Continue with PPI therapy - H/H stable, continue to monitor given patient complaint of dark colored stool - Diet as tolerated - Anti-emetic therapy PRN - No clear indication for antibiotic therapy, follow up ID recommendations - Continue with antifungal therapy - Monitor calorie count. Patient currently not candidate for PEG placement given gastric and anastomotic ulcerations, however if she is not able to maintain adequate caloric intake she remains at high risk for complications from malnourishment and would consider future feeding tube placement. For time being would also consider PPN given clinical scenario, though would certainly favor enteric feeding if possible. Will continue to monitor patient clinical course.
[2017-01-27] MEDS: Sucralfate 1 gm/10 ml Oral Susp UD PO SCH ×4 (08:05→21:15)
[2017-01-27] MEDS: Dextrose 5%/0.9% NS 1,000 ML IV SCH ×3 (09:58→19:44)
[2017-01-27] MEDS: Fluconazole IV 200mg/100 ml NS 100 MG in Premixed IV 1 EA IVPB SCH (11:22)
[2017-01-27 11:54] LABS: BASO # 0.1 K/uL (0.0-0.2); BASO % 1.8 % (0.0-2.0); EOS # 0.3 K/uL (0.0-0.7); HEMATOCRIT 42.7 % (34.0-47.0); LYMPH # 1.2 K/uL (1.0-4.3); MEAN CELL VOLUME 95.6 fL (81.0-99.0); MEAN CORPUSCULAR HEMOGLOBIN 31.1 pg (27.0-31.0); MEAN CORPUSCULAR HGB CONC 32.5 g/dL (33.0-37.0); MEAN PLATELET VOLUME 6.8 fL (7.2-11.7); MONO # 0.3 K/uL (0.0-0.8); MONO % 8.1 % (0.0-10.0); NRBC % 0.1 % (0.0-2.0); RED CELL DISTRIBUTION WIDTH 15.4 % (11.5-14.5)
[2017-01-27 12:00] LABS: WHITE BLOOD COUNT 3.6 K/uL (4.8-10.8)
[2017-01-27 12:03] LABS: CHLORIDE 104 mmol/L (98-107)
[2017-01-27 12:04] LABS: POTASSIUM 3.9 mmol/L (3.6-5.2); SODIUM 140 mmol/L (132-148)
[2017-01-27 12:06] LABS: ALKALINE PHOSPHATASE 74 U/L (38-126); AST/SGOT 26 U/L (14-36); BILIRUBIN,TOTAL 0.5 mg/dL (0.2-1.3); CARBON DIOXIDE 29 mmol/L (22-30); GFR AFRICAN-AMERICAN > 60; GLUCOSE,RANDOM 78 mg/dL (65-105); TOTAL PROTEIN 5.6 g/dL (6.3-8.3)
[2017-01-27 12:07] LABS: ALT/SGPT 23 U/L (9-52); BLOOD UREA NITROGEN 2 mg/dL (7-17); CALCIUM 8.2 mg/dl (8.6-10.4)
--- NOTE | 2017-01-27 15:05 | CP.PCM.PN ---
Subjective - Date & Time of Evaluation Date of Evaluation: 01/27/17 Time of Evaluation: 15:00 - Subjective Subjective: Service for Dr. Fiona Sweeney Pt seen and examined at bedside. No acute distress. No events overnight. Pt still having nausea with food, GI following. No fevers, chills. Pt still have mucusy stools. ID and GI following. Objective - Vital Signs/Intake and Output Vital Signs (last 24 hours): Temp Pulse Resp BP Pulse Ox 97.8 F 90 20 144/88 95 01/27/17 07:11 01/27/17 07:11 01/27/17 07:11 01/27/17 07:11 01/27/17 07:11 Intake and Output: 01/27/17 01/27/17 06:59 18:59 Intake Total 1200 Balance 1200 - Medications Medications: Current Medications Atenolol (Tenormin) 25 mg PO DAILY [facility] Last Admin: 01/27/17 11:21 Dose: 25 mg Diphenhydramine HCl (Benadryl) 50 mg IVP Q4H PRN Last Admin: 01/27/17 11:24 Dose: 50 mg Ergocalciferol (Drisdol 50,000 Intl Units Cap) 1 cap PO QWK [facility] Fentanyl (Duragesic) 1 patch TD Q72H [facility] Last Admin: 01/26/17 00:39 Dose: Not Given Fentanyl (Duragesic) 1 patch TD Q72H [facility] Last Admin: 01/26/17 00:39 Dose: Not Given Gabapentin (Neurontin) 400 mg PO TID [facility] Last Admin: 01/27/17 14:54 Dose: 400 mg Hydromorphone HCl (Dilaudid) 2 mg IVP Q4H PRN PRN Reason: Pain, severe (8-10) Last Admin: 01/27/17 11:23 Dose: 2 mg Dextrose/Sodium Chloride (Dextrose 5%/0.9% Ns 1000 Ml) 1,000 mls @ 100 mls/hr IV .Q10H [facility] Last Admin: 01/27/17 09:58 Dose: 100 mls/hr Cefazolin Sodium 500 mg/ (Sodium Chloride) 100 mls @ 100 mls/hr IVPB Q8H [facility] Last Admin: 01/27/17 12:40 Dose: Not Given Fluconazole 100 mg/ (Miscellaneous) 50 mls @ 100 mls/hr IVPB DAILY [facility] Last Admin: 01/27/17 11:22 Dose: 100 mls/hr Lorazepam (Ativan) 1 mg PO TID [facility] Last Admin: 01/27/17 14:54 Dose: 1 mg Metoclopramide HCl (Reglan) 10 mg IVP ACHS [facility] Last Admin: 01/27/17 11:39 Dose: Not Given Mometasone Furoate (Asmanex Twisthaler 110 Mcg) 1 puff INH RQ12 [facility] Nicotine (Nicoderm Cq) 1 patch TD DAILY [facility] Last Admin: 01/27/17 11:22 Dose: 1 patch Ondansetron HCl (Zofran Inj) 4 mg IVP Q4H PRN PRN Reason: Nausea/Vomiting Last Admin: 01/27/17 11:38 Dose: 4 mg Pantoprazole Sodium (Protonix Ec Tab) 40 mg PO BID [facility] Spironolactone (Aldactone) 25 mg PO DAILY [facility] Last Admin: 01/27/17 11:21 Dose: 25 mg Sucralfate (Carafate Oral Susp) 1 gm PO ACHS [facility] Last Admin: 01/27/17 11:21 Dose: 1 gm - Labs Labs: 01/27/17 11:31 01/27/17 11:31 PT 13.8 SECONDS (9.7-12.2) H 01/25/17 21:57 INR 1.2 01/25/17 21:57 APTT 33 SECONDS (21-34) 01/25/17 21:57 - Constitutional Appears: Cachectic, Chronically Ill - Head Exam Head Exam: ATRAUMATIC, NORMAL INSPECTION, NORMOCEPHALIC - Eye Exam Eye Exam: Normal appearance - ENT Exam ENT Exam: Mucous Membranes Moist - Neck Exam Neck Exam: Full ROM, Normal Inspection - Respiratory Exam Respiratory Exam: absent: Respiratory Distress - Cardiovascular Exam Cardiovascular Exam: REGULAR RHYTHM, +S1, +S2 - GI/Abdominal Exam GI & Abdominal Exam: Tenderness. absent: Normal Bowel Sounds Additional comments: Moderate tenderness epigastric - Extremities Exam Extremities Exam: Full ROM, Normal Inspection - Neurological Exam Neurological Exam: Alert, Awake, CN II-XII Intact - Psychiatric Exam Psychiatric exam: Anxious, Flat Affect - Skin Skin Exam: Dry, Intact, Normal Color, Warm Assessment and Plan - Assessment and Plan (Free Text) Assessment: This is a 46 yo female with past medical hx of HTN anemia, gastric ulcers, gastric perforation presenting with abdominal pain, nausea, vomiting 1. Abdominal pain/nausea -GI consult. recs appreciated. -GI workup in progress -EGD biopsy results pending -pt is s/p egd -D5 NS -continue cefazolin 500 q 8 -continue iv dilaudid -continue fentanyl patch -continue sucralfate 2. HTN -continue atenolol 25 po daily -continue spironolactone 25 po daily 3. hx of tobacco abuse -continue nicotine patch -continue mometasone 4. candidal esophagitis -continue diflucan -ID following. recs appreciated 5. GI/DVT ppx -zofran -protonix discussed with Dr. Sweeney
[2017-01-27] MEDS ORDERED: DiphenhydrAMINE 50 mg/ml Inj IM ONE (15:30)
--- NOTE | 2017-01-27 16:53 | CP.PCM.PN ---
Subjective - Date & Time of Evaluation Date of Evaluation: 01/27/17 Time of Evaluation: 09:40 - Subjective Subjective: clinically same Objective - Vital Signs/Intake and Output Vital Signs (last 24 hours): Temp Pulse Resp BP Pulse Ox 97.9 F 78 20 134/87 98 01/27/17 16:17 01/27/17 16:17 01/27/17 16:17 01/27/17 16:17 01/27/17 16:17 Intake and Output: 01/27/17 01/27/17 06:59 18:59 Intake Total 1200 Balance 1200 - Medications Medications: Current Medications Atenolol (Tenormin) 25 mg PO DAILY [facility] Last Admin: 01/27/17 11:21 Dose: 25 mg Diphenhydramine HCl (Benadryl) 50 mg IVP Q4H PRN Last Admin: 01/27/17 11:24 Dose: 50 mg Ergocalciferol (Drisdol 50,000 Intl Units Cap) 1 cap PO QWK [facility] Fentanyl (Duragesic) 1 patch TD Q72H [facility] Last Admin: 01/26/17 00:39 Dose: Not Given Fentanyl (Duragesic) 1 patch TD Q72H [facility] Last Admin: 01/26/17 00:39 Dose: Not Given Gabapentin (Neurontin) 400 mg PO TID [facility] Last Admin: 01/27/17 14:54 Dose: 400 mg Hydromorphone HCl (Dilaudid) 2 mg IVP Q4H PRN PRN Reason: Pain, severe (8-10) Last Admin: 01/27/17 11:23 Dose: 2 mg Dextrose/Sodium Chloride (Dextrose 5%/0.9% Ns 1000 Ml) 1,000 mls @ 100 mls/hr IV .Q10H [facility] Last Admin: 01/27/17 16:07 Dose: Not Given Cefazolin Sodium 500 mg/ (Sodium Chloride) 100 mls @ 100 mls/hr IVPB Q8H [facility] Last Admin: 01/27/17 12:40 Dose: Not Given Fluconazole 100 mg/ (Miscellaneous) 50 mls @ 100 mls/hr IVPB DAILY [facility] Last Admin: 01/27/17 11:22 Dose: 100 mls/hr Lorazepam (Ativan) 1 mg PO TID [facility] Last Admin: 01/27/17 14:54 Dose: 1 mg Metoclopramide HCl (Reglan) 10 mg IVP ACHS [facility] Last Admin: 01/27/17 11:39 Dose: Not Given Mometasone Furoate (Asmanex Twisthaler 110 Mcg) 1 puff INH RQ12 [facility] Nicotine (Nicoderm Cq) 1 patch TD DAILY [facility] Last Admin: 01/27/17 11:22 Dose: 1 patch Ondansetron HCl (Zofran Inj) 4 mg IVP Q4H PRN PRN Reason: Nausea/Vomiting Last Admin: 01/27/17 11:38 Dose: 4 mg Pantoprazole Sodium (Protonix Ec Tab) 40 mg PO BID [facility] Spironolactone (Aldactone) 25 mg PO DAILY [facility] Last Admin: 01/27/17 11:21 Dose: 25 mg Sucralfate (Carafate Oral Susp) 1 gm PO ACHS [facility] Last Admin: 01/27/17 11:21 Dose: 1 gm - Labs Labs: 01/27/17 11:31 01/27/17 11:31 PT 13.8 SECONDS (9.7-12.2) H 01/25/17 21:57 INR 1.2 01/25/17 21:57 APTT 33 SECONDS (21-34) 01/25/17 21:57
[2017-01-27] MEDS: Pantoprazole 40 mg EC Tab PO SCH (17:21)
[2017-01-27 17:50] LABS: ALCOHOL SERUM < 10 mg/dl (0-10)
[2017-01-27 18:56] LABS: FOLATE 11.2 ng/mL
--- NOTE | 2017-01-27 19:23 | CP.PCM.PN ---
Subjective - Date & Time of Evaluation Date of Evaluation: 01/27/17 Time of Evaluation: 10:00 - Subjective Subjective: IV RX IN PROGRESS NO NEW COMPLAINTS Objective - Vital Signs/Intake and Output Vital Signs (last 24 hours): Temp Pulse Resp BP Pulse Ox 97.9 F 78 20 134/87 98 01/27/17 16:17 01/27/17 16:17 01/27/17 16:17 01/27/17 16:17 01/27/17 16:17 Intake and Output: 01/27/17 01/28/17 18:59 06:59 Intake Total 750 Balance 750 - Medications Medications: Current Medications Atenolol (Tenormin) 25 mg PO DAILY [facility] Last Admin: 01/27/17 11:21 Dose: 25 mg Diphenhydramine HCl (Benadryl) 50 mg IVP Q4H [facility] Last Admin: 01/27/17 11:24 Dose: 50 mg Ergocalciferol (Drisdol 50,000 Intl Units Cap) 1 cap PO QWK [facility] Fentanyl (Duragesic) 1 patch TD Q72H [facility] Last Admin: 01/26/17 00:39 Dose: Not Given Fentanyl (Duragesic) 1 patch TD Q72H [facility] Last Admin: 01/26/17 00:39 Dose: Not Given Gabapentin (Neurontin) 400 mg PO TID [facility] Last Admin: 01/27/17 17:21 Dose: 400 mg Hydromorphone HCl (Dilaudid) 2 mg IVP Q4H PRN PRN Reason: Pain, severe (8-10) Last Admin: 01/27/17 11:23 Dose: 2 mg Dextrose/Sodium Chloride (Dextrose 5%/0.9% Ns 1000 Ml) 1,000 mls @ 100 mls/hr IV .Q10H [facility] Last Admin: 01/27/17 16:07 Dose: Not Given Cefazolin Sodium 500 mg/ (Sodium Chloride) 100 mls @ 100 mls/hr IVPB Q8H [facility] Last Admin: 01/27/17 12:40 Dose: Not Given Fluconazole 100 mg/ (Miscellaneous) 50 mls @ 100 mls/hr IVPB DAILY [facility] Last Admin: 01/27/17 11:22 Dose: 100 mls/hr Lorazepam (Ativan) 1 mg PO TID [facility] Last Admin: 01/27/17 17:21 Dose: 1 mg Metoclopramide HCl (Reglan) 10 mg IVP ACHS [facility] Last Admin: 01/27/17 16:57 Dose: Not Given Mometasone Furoate (Asmanex Twisthaler 110 Mcg) 1 puff INH RQ12 [facility] Nicotine (Nicoderm Cq) 1 patch TD DAILY [facility] Last Admin: 01/27/17 11:22 Dose: 1 patch Ondansetron HCl (Zofran Inj) 4 mg IVP Q4H PRN PRN Reason: Nausea/Vomiting Last Admin: 01/27/17 11:38 Dose: 4 mg Pantoprazole Sodium (Protonix Ec Tab) 40 mg PO BID [facility] Last Admin: 01/27/17 17:21 Dose: 40 mg Spironolactone (Aldactone) 25 mg PO DAILY [facility] Last Admin: 01/27/17 11:21 Dose: 25 mg Sucralfate (Carafate Oral Susp) 1 gm PO ACHS [facility] Last Admin: 01/27/17 17:21 Dose: 1 gm - Labs Labs: 01/27/17 11:31 01/27/17 11:31 PT 13.8 SECONDS (9.7-12.2) H 01/25/17 21:57 INR 1.2 01/25/17 21:57 APTT 33 SECONDS (21-34) 01/25/17 21:57 - Constitutional Appears: Non-toxic, Chronically Ill - Head Exam Head Exam: NORMOCEPHALIC - ENT Exam ENT Exam: Mucous Membranes Dry - Neck Exam Neck Exam: absent: Lymphadenopathy - Respiratory Exam Respiratory Exam: Decreased Breath Sounds - Cardiovascular Exam Cardiovascular Exam: REGULAR RHYTHM - GI/Abdominal Exam GI & Abdominal Exam: Distended Assessment and Plan (1) Esophageal candidiasis Status: Acute (2) Abdominal pain Status: Acute (3) Intractable vomiting Status: Acute (4) GI bleed Status: Acute
[2017-01-28] MEDS: Dextrose 5%/0.9% NS 1,000 ML IV SCH ×2 (00:10→01:15)
[2017-01-28] MEDS: DiphenhydrAMINE 50 mg/ml Inj IVP PRN ×2 (06:32→10:27)
--- NOTE | 2017-01-28 07:39 | CP.PCM.PN ---
<Ken Sweeney - Last Filed: 01/28/17 11:02> Subjective - Date & Time of Evaluation Date of Evaluation: 01/28/17 Time of Evaluation: 06:45 - Subjective Subjective: PGY4 Pt seen and examined bedside Still has abd pain no appetite minimal Po intake Still has heart burn 10-point ROS conducted, neg other than above Objective - Vital Signs/Intake and Output Vital Signs (last 24 hours): Temp Pulse Resp BP Pulse Ox 98.4 F 75 20 138/89 99 01/28/17 00:00 01/28/17 00:00 01/28/17 00:00 01/28/17 00:00 01/28/17 00:00 Intake and Output: 01/28/17 01/28/17 06:59 18:59 Intake Total 600 Balance 600 - Medications Medications: Current Medications Atenolol (Tenormin) 25 mg PO DAILY [facility] Last Admin: 01/27/17 11:21 Dose: 25 mg Diphenhydramine HCl (Benadryl) 50 mg IVP Q4H [facility] Last Admin: 01/28/17 06:32 Dose: 50 mg Ergocalciferol (Drisdol 50,000 Intl Units Cap) 1 cap PO QWK [facility] Fentanyl (Duragesic) 1 patch TD Q72H [facility] Last Admin: 01/26/17 00:39 Dose: Not Given Fentanyl (Duragesic) 1 patch TD Q72H [facility] Last Admin: 01/26/17 00:39 Dose: Not Given Gabapentin (Neurontin) 400 mg PO TID [facility] Last Admin: 01/27/17 17:21 Dose: 400 mg Hydromorphone HCl (Dilaudid) 2 mg IVP Q4H PRN PRN Reason: Pain, severe (8-10) Last Admin: 01/28/17 06:32 Dose: 2 mg Dextrose/Sodium Chloride (Dextrose 5%/0.9% Ns 1000 Ml) 1,000 mls @ 100 mls/hr IV .Q10H [facility] Last Admin: 01/28/17 01:15 Dose: Not Given Cefazolin Sodium 500 mg/ (Sodium Chloride) 100 mls @ 100 mls/hr IVPB Q8H [facility] Last Admin: 01/28/17 04:00 Dose: Not Given Fluconazole 100 mg/ (Miscellaneous) 50 mls @ 100 mls/hr IVPB DAILY [facility] Last Admin: 01/27/17 11:22 Dose: 100 mls/hr Lorazepam (Ativan) 1 mg PO TID [facility] Last Admin: 01/27/17 17:21 Dose: 1 mg Metoclopramide HCl (Reglan) 10 mg IVP ACHS [facility] Last Admin: 01/27/17 21:12 Dose: Not Given Mometasone Furoate (Asmanex Twisthaler 110 Mcg) 1 puff INH RQ12 [facility] Nicotine (Nicoderm Cq) 1 patch TD DAILY [facility] Last Admin: 01/27/17 11:22 Dose: 1 patch Ondansetron HCl (Zofran Inj) 4 mg IVP Q4H PRN PRN Reason: Nausea/Vomiting Last Admin: 01/28/17 00:03 Dose: 4 mg Pantoprazole Sodium (Protonix Ec Tab) 40 mg PO BID [facility] Last Admin: 01/27/17 17:21 Dose: 40 mg Spironolactone (Aldactone) 25 mg PO DAILY [facility] Last Admin: 01/27/17 11:21 Dose: 25 mg Sucralfate (Carafate Oral Susp) 1 gm PO ACHS [facility] Last Admin: 01/27/17 21:15 Dose: 1 gm - Labs Labs: 01/27/17 11:31 01/27/17 11:31 PT 13.8 SECONDS (9.7-12.2) H 01/25/17 21:57 INR 1.2 01/25/17 21:57 APTT 33 SECONDS (21-34) 01/25/17 21:57 - Constitutional Appears: No Acute Distress, Cachectic, Chronically Ill - Head Exam Head Exam: ATRAUMATIC, NORMOCEPHALIC - Eye Exam Eye Exam: Normal appearance - ENT Exam ENT Exam: Mucous Membranes Moist - Respiratory Exam Respiratory Exam: Clear to Ausculation Bilateral, NORMAL BREATHING PATTERN. absent: Rales, Rhonchi, Wheezes, Respiratory Distress - Cardiovascular Exam Cardiovascular Exam: REGULAR RHYTHM, +S1 - GI/Abdominal Exam GI & Abdominal Exam: Soft, Normal Bowel Sounds. absent: Guarding, Rigid, Tenderness, Hyperactive Bowel Sounds, Organomegaly, Rebound - Extremities Exam Extremities Exam: absent: Joint Swelling, Pedal Edema - Neurological Exam Neurological Exam: Alert, Awake, Oriented x3 - Psychiatric Exam Psychiatric exam: Normal Affect, Normal Mood - Skin Skin Exam: Dry, Intact, Normal Color, Warm Assessment and Plan - Assessment and Plan (Free Text) Assessment: Josette Keys is a 46F w/ sig comorbidities including failure to thrive, esophagitis, gastic ulcers, partial gastrectomy who presents with complaints of generalized abd pain, weakness, decreased appetite, amd 2-3 episodes of dark stool. EGD revealed severe esophagitis with white plaques likely 2/2 candidiasis , severe gastritis with large ulcers in the body and at the anastomotic site. Also noted was a foreign body (bay leaf) in the stomach Esophagitis likely 2/2 Candidiasis Severe Gastritis Large gastric ulcer in the body and at anastomotic site Failure to thrive Acute on chronic Diarrhea, etiology unknown, r/o infectious Malnutrition Nausea hx of partial gastrectomy, 2/2 to porforated gastric ulcer? Plan: -Pain management as per primary team -Continue Protonix 40mg daily -diflucan 100mg daily for 2 weeks -reglan TID before meals untill discharge -can continue carafate -hgb stable -should consider a G-Tube in the near future if pt is not able to take any PO intake, at this time she is not a candidate due to large gastric ulcers -will sign off D/W <[facility] - Last Filed: 01/28/17 20:20> Objective - Vital Signs/Intake and Output Vital Signs (last 24 hours): Temp Pulse Resp BP Pulse Ox 97.6 F 68 20 145/87 100 01/28/17 08:35 01/28/17 08:35 01/28/17 08:35 01/28/17 08:35 01/28/17 08:35 - Labs Labs: 01/28/17 11:17 01/28/17 11:17 PT 13.8 SECONDS (9.7-12.2) H 01/25/17 21:57 INR 1.2 01/25/17 21:57 APTT 33 SECONDS (21-34) 01/25/17 21:57 Attending/Attestation - Attestation I have personally seen and examined this patient.: Yes I have fully participated in the care of the patient.: Yes I have reviewed all pertinent clinical information, including history, physical exam and plan: Yes Notes (Text): 01/28/17 20:12 Patient seen at bedside. 46 yr old F w/ significant comorbidities including failure to thrive, esophagitis, gastic ulcers, partial gastrectomy who presents with complaints of generalized abd pain, weakness, decreased appetite, and 2-3 episodes of dark stool. EGD revealed severe esophagitis with white plaques likely 2/2 candidiasis, severe gastritis with large ulcers in the body and at the anastomotic site. Also noted was a foreign body (bay leaf) in the stomach. pain management as patient has pain meds seeking behavior. Continue Protonix 40mg daily. Continue diflucan 100mg daily for 2 weeks. Reglan TID before meals untill discharge and carafate. Should consider a G-Tube in the near future if pt is not able to take any PO intake, at this time she is not a candidate due to large gastric ulcers. Will sign off now. Thank you for letting us participate in the care of your patient
[2017-01-28] MEDS: Sucralfate 1 gm/10 ml Oral Susp UD PO SCH ×2 (07:56→10:42)
[2017-01-28 08:36] VITALS: BP 145/87; PULSE 68; TEMP 97.6; O2SAT 100
[2017-01-28] MEDS: Fluconazole IV 200mg/100 ml NS 100 MG in Premixed IV 1 EA IVPB SCH (09:47)
[2017-01-28] MEDS: Pantoprazole 40 mg EC Tab PO SCH (09:47)
--- NOTE | 2017-01-28 10:04 | CP.PCM.PN ---
Subjective - Date & Time of Evaluation Date of Evaluation: 01/28/17 Time of Evaluation: 07:35 - Subjective Subjective: PGY2 Resident - Medicine Progress Note Patient has decided to leave the hospital against medical advice. The patient is competent and understands the risks of leaving, including permanent disability and/or , and has had an opportunity to ask questions about her condition. Patient accepts all risk and liability. Paper work filed. Dr. Darya Sweeney is aware. The patient has been informed that she may return for care at any time, and patient will follow-up with the [facility] for an appointment. Provided with the following scripts per GI: Fluconazole Oral suspension, 100mg PO qD, Take for 2 weeks, QS Protonix 40mg PO qD, #30 Carafate Oral Suspension, 1Gm PO TID PRN, Take for 1 month, QS Objective - Vital Signs/Intake and Output Vital Signs (last 24 hours): Temp Pulse Resp BP Pulse Ox 97.6 F 68 20 145/87 100 01/28/17 08:35 01/28/17 08:35 01/28/17 08:35 01/28/17 08:35 01/28/17 08:35 Intake and Output: 01/28/17 01/28/17 06:59 18:59 Intake Total 1100 Balance 1100 - Medications Medications: Current Medications Atenolol (Tenormin) 25 mg PO DAILY [facility] Last Admin: 01/28/17 09:47 Dose: 25 mg Diphenhydramine HCl (Benadryl) 50 mg IVP Q4H [facility] Last Admin: 01/28/17 06:32 Dose: 50 mg Ergocalciferol (Drisdol 50,000 Intl Units Cap) 1 cap PO QWK [facility] Fentanyl (Duragesic) 1 patch TD Q72H [facility] Last Admin: 01/26/17 00:39 Dose: Not Given Fentanyl (Duragesic) 1 patch TD Q72H [facility] Last Admin: 01/26/17 00:39 Dose: Not Given Gabapentin (Neurontin) 400 mg PO TID [facility] Last Admin: 01/28/17 09:47 Dose: 400 mg Hydromorphone HCl (Dilaudid) 2 mg IVP Q4H PRN PRN Reason: Pain, severe (8-10) Last Admin: 01/28/17 06:32 Dose: 2 mg Dextrose/Sodium Chloride (Dextrose 5%/0.9% Ns 1000 Ml) 1,000 mls @ 100 mls/hr IV .Q10H [facility] Last Admin: 01/28/17 01:15 Dose: Not Given Cefazolin Sodium 500 mg/ (Sodium Chloride) 100 mls @ 100 mls/hr IVPB Q8H [facility] Last Admin: 01/28/17 04:00 Dose: Not Given Fluconazole 100 mg/ (Miscellaneous) 50 mls @ 100 mls/hr IVPB DAILY [facility] Last Admin: 01/28/17 09:47 Dose: 100 mls/hr Lorazepam (Ativan) 1 mg PO TID [facility] Last Admin: 01/28/17 09:47 Dose: 1 mg Metoclopramide HCl (Reglan) 10 mg IVP ACHS [facility] Last Admin: 01/28/17 08:22 Dose: Not Given Mometasone Furoate (Asmanex Twisthaler 110 Mcg) 1 puff INH RQ12 [facility] Nicotine (Nicoderm Cq) 1 patch TD DAILY [facility] Last Admin: 01/28/17 09:47 Dose: 1 patch Ondansetron HCl (Zofran Inj) 4 mg IVP Q4H PRN PRN Reason: Nausea/Vomiting Last Admin: 01/28/17 00:03 Dose: 4 mg Pantoprazole Sodium (Protonix Ec Tab) 40 mg PO BID [facility] Last Admin: 01/28/17 09:47 Dose: 40 mg Spironolactone (Aldactone) 25 mg PO DAILY [facility] Last Admin: 01/28/17 09:47 Dose: 25 mg Sucralfate (Carafate Oral Susp) 1 gm PO ACHS [facility] Last Admin: 01/28/17 07:56 Dose: 1 gm - Labs Labs: 01/27/17 11:31 01/27/17 11:31 PT 13.8 SECONDS (9.7-12.2) H 01/25/17 21:57 INR 1.2 01/25/17 21:57 APTT 33 SECONDS (21-34) 01/25/17 21:57 - Additional Findings Additional findings: - Constitutional Appears: Cachectic, Chronically Ill - Head Exam Head Exam: ATRAUMATIC, NORMAL INSPECTION, NORMOCEPHALIC - Eye Exam Eye Exam: Normal appearance - ENT Exam ENT Exam: Mucous Membranes Moist - Neck Exam Neck Exam: Full ROM, Normal Inspection - Respiratory Exam Respiratory Exam: absent: Respiratory Distress - Cardiovascular Exam Cardiovascular Exam: REGULAR RHYTHM, +S1, +S2 - GI/Abdominal Exam GI & Abdominal Exam: Tenderness. absent: Normal Bowel Sounds Additional comments: Mild epigastric tenderness (improving) - Extremities Exam Extremities Exam: Full ROM, Normal Inspection - Neurological Exam Neurological Exam: Alert, Awake, CN II-XII Intact - Psychiatric Exam Psychiatric exam: Anxious, Flat Affect - Skin Skin Exam: Dry, Intact, Normal Color, Warm Assessment and Plan - Assessment and Plan (Free Text) Assessment: This is a 46 yo female with past medical hx of HTN anemia, gastric ulcers, gastric perforation presenting with abdominal pain, nausea, vomiting 1. Abdominal pain/nausea 01/28: Patient left AMA, scripts provided. -GI consult. recs appreciated. -GI workup in progress -EGD biopsy results pending -pt is s/p egd -D5 NS -continue cefazolin 500 q 8 -continue iv dilaudid -continue fentanyl patch -continue sucralfate 2. HTN 01/28: BP Stable, Patient left AMA -continue atenolol 25 po daily -continue spironolactone 25 po daily 3. hx of tobacco abuse 01/28: Patient left AMA -continue nicotine patch -continue mometasone 4. candidal esophagitis 01/28: Patient left AMA, scripts provided. -continue diflucan -ID following. recs appreciated 5. GI/DVT ppx -zofran -protonix Case discussed with attending. All medical management as per Dr. Darya Sweeney
--- NOTE | 2017-01-28 10:07 | RAD ---
HISTORY: verify right PICC COMPARISON: Chest x-ray performed 01/25/17 TECHNIQUE: Chest, one view. FINDINGS: Right-sided PICC extends expected location of the SVC. LUNGS: Hyperinflation may be seen in the setting of COPD. Retrocardiac atelectasis or infiltrate. Right basilar atelectasis. No significant pleural effusion. No definite pneumothorax. CARDIOVASCULAR: Heart size appears top normal. OSSEOUS STRUCTURES: Degenerative changes. VISUALIZED UPPER ABDOMEN: Upper abdominal surgical clips. Elevation of the right hemidiaphragm. OTHER FINDINGS: None. IMPRESSION: Right-sided PICC extends to the expected location of the SVC. Heart size appears top normal. Hyperinflation may be seen in the setting of COPD. Retrocardiac atelectasis or infiltrate. Right basilar atelectasis.
[2017-01-28 11:29] LABS: BASO # 0.1 K/uL (0.0-0.2); EOS # 0.3 K/uL (0.0-0.7); EOS % 6.1 % (0.0-4.0); LYMPH # 1.6 K/uL (1.0-4.3); LYMPH % 28.4 % (20.0-40.0); MEAN CELL VOLUME 96.2 fL (81.0-99.0); MEAN CORPUSCULAR HEMOGLOBIN 31.4 pg (27.0-31.0); MEAN CORPUSCULAR HGB CONC 32.6 g/dL (33.0-37.0); MEAN PLATELET VOLUME 6.9 fL (7.2-11.7); MONO # 0.4 K/uL (0.0-0.8); MONO % 7.9 % (0.0-10.0); NRBC % 0.1 % (0.0-2.0); RED CELL DISTRIBUTION WIDTH 15.2 % (11.5-14.5)
--- NOTE | 2017-01-28 11:37 | CP.PCM.PN ---
Subjective - Date & Time of Evaluation Date of Evaluation: 01/28/17 Time of Evaluation: 09:00 - Subjective Subjective: clinically same Objective - Vital Signs/Intake and Output Vital Signs (last 24 hours): Temp Pulse Resp BP Pulse Ox 97.6 F 68 20 145/87 100 01/28/17 08:35 01/28/17 08:35 01/28/17 08:35 01/28/17 08:35 01/28/17 08:35 Intake and Output: 01/28/17 01/28/17 06:59 18:59 Intake Total 1100 Balance 1100 - Medications Medications: Current Medications Atenolol (Tenormin) [address] [facility] Last Admin: 01/28/17 09:47 Dose: 25 mg Diphenhydramine HCl (Benadryl) 50 mg IVP Q4H PRN Last Admin: 01/28/17 10:27 Dose: 50 mg Ergocalciferol (Drisdol 50,000 Intl Units Cap) [address] [facility] Fentanyl (Duragesic) [address] [facility] Last Admin: 01/26/17 00:39 Dose: Not Given Fentanyl (Duragesic) [address] [facility] Last Admin: 01/26/17 00:39 Dose: Not Given Gabapentin (Neurontin) [address] [facility] Last Admin: 01/28/17 09:47 Dose: 400 mg Hydromorphone HCl (Dilaudid) 2 mg IVP Q4H PRN PRN Reason: Pain, severe (8-10) Last Admin: 01/28/17 10:27 Dose: 2 mg Dextrose/Sodium Chloride (Dextrose 5%/0.9% Ns 1000 Ml) 1,000 mls @ 100 mls/hr IV .Q10H [facility] Last Admin: 01/28/17 01:15 Dose: Not Given Cefazolin Sodium 500 mg/ (Sodium Chloride) 100 mls @ 100 mls/hr IVPB Q8H [facility] Last Admin: 01/28/17 04:00 Dose: Not Given Fluconazole 100 mg/ (Miscellaneous) 50 mls @ 100 mls/hr IVPB DAILY [facility] Last Admin: 01/28/17 09:47 Dose: 100 mls/hr Lorazepam (Ativan) [address] [facility] Last Admin: 09/01/17 09:47 Dose: 1 mg Metoclopramide HCl (Reglan) [address] [facility] Last Admin: 01/28/17 10:42 Dose: 10 mg Mometasone Furoate (Asmanex Twisthaler 110 Mcg) [address] [facility] Nicotine (Nicoderm Cq) [address] [facility] Last Admin: 01/28/17 09:47 Dose: 1 patch Ondansetron HCl (Zofran Inj) 4 mg IVP Q4H PRN PRN Reason: Nausea/Vomiting Last Admin: 01/28/17 00:03 Dose: 4 mg Pantoprazole Sodium (Protonix Ec Tab) [address] [facility] Last Admin: 01/28/17 09:47 Dose: 40 mg Spironolactone (Aldactone) [address] [facility] Last Admin: 01/28/17 09:47 Dose: 25 mg Sucralfate (Carafate Oral Susp) [address] [facility] Last Admin: 01/28/17 10:42 Dose: 1 gm - Labs Labs: 01/27/17 11:31 01/27/17 11:31 PT 13.8 SECONDS (9.7-12.2) H 01/25/17 21:57 INR 1.2 01/25/17 21:57 APTT 33 SECONDS (21-34) 01/25/17 21:57 - Constitutional Appears: Well - Head Exam Head Exam: ATRAUMATIC, NORMAL INSPECTION, NORMOCEPHALIC - Eye Exam Eye Exam: EOMI, Normal appearance, PERRL Pupil Exam: NORMAL ACCOMODATION, PERRL - ENT Exam ENT Exam: Mucous Membranes Moist, Normal Exam - Neck Exam Neck Exam: Full ROM, Normal Inspection. absent: Lymphadenopathy - Respiratory Exam Respiratory Exam: Decreased Breath Sounds - Cardiovascular Exam Cardiovascular Exam: REGULAR RHYTHM, +S1, +S2 - GI/Abdominal Exam GI & Abdominal Exam: Soft, Diminished Bowel Sounds - Rectal Exam Rectal Exam: Deferred
[2017-01-28 11:42] LABS: WHITE BLOOD COUNT 5.6 K/uL (4.8-10.8)
[2017-01-28 11:43] LABS: CHLORIDE 103 mmol/L (98-107)
[2017-01-28 11:45] LABS: SODIUM 142 mmol/L (132-148)
[2017-01-28 11:47] LABS: ALB/GLOB RATIO 1.1 (1.0-2.1); ALKALINE PHOSPHATASE 75 U/L (38-126); ALT/SGPT 30 U/L (9-52); AST/SGOT 25 U/L (14-36); BILIRUBIN,TOTAL 0.3 mg/dL (0.2-1.3); BLOOD UREA NITROGEN 5 mg/dL (7-17); CARBON DIOXIDE 35 mmol/L (22-30); GFR AFRICAN-AMERICAN > 60; TOTAL PROTEIN 5.9 g/dL (6.3-8.3)
[2017-01-28 11:48] LABS: CALCIUM 8.5 mg/dl (8.6-10.4); GLUCOSE,RANDOM 63 mg/dL (65-105); MAGNESIUM 1.7 mg/dL (1.6-2.3); PHOSPHOROUS 3.5 mg/dL (2.5-4.5)
[2017-02-02] MEDS ORDERED: Ergocalciferol 50,000 Intl Units Cap PO SCH (10:00)
== END 2017-01-28 12:30 | disposition left against medical advice (07) ==
LOC: C.ER 20:07 → C.9E 22:18 → C.5T 22:53 → C.3T 01-27 22:53
PROVIDERS: ADMIT Internal Medicine Nephrology; ATTEND Internal Medicine Nephrology
DX: B37.81 Candidal esophagitis (principal); K25.9 Gastric ulcer, unspecified as acute or chronic, without hemorrhage or perforation; R62.7 Adult failure to thrive; R19.7 Diarrhea, unspecified; Z90.49 Acquired absence of other specified parts of digestive tract; I10 Essential (primary) hypertension; D64.9 Anemia, unspecified; F17.210 Nicotine dependence, cigarettes, uncomplicated; J45.909 Unspecified asthma, uncomplicated; R10.84 Generalized abdominal pain
CPT/HCPCS: 36415; 36569; 36592; 71010; 80048; 80053; 81001; 82525; 82607; 82746; 83690; 83735; 84100; 84484; 84703; 85025; 85610; 85730; 86360; 86703; 86850; 86860; 86870; 86900; 87086; 93005; 96361; 96374; 96375; 99283; C9113; G0378; G0480; J0690; J0743; J1170; J1200; J1450; J2405; J2765; J3480; J7040; J7042

== ENCOUNTER 2017-01-30 14:50 | Emergency (ER) | payer MEDICARE, OTHER ==
[2017-01-30 14:50] VITALS: BMI 14.7
[2017-01-30 15:14] VITALS: TEMP 98.1
--- NOTE | 2017-01-30 15:38 | C.PDOC ---
History Of Present Illness 46 year old female presents to the ED with complaints of persistent lower GI bleeding, abdominal pain, nausea, and vomiting. Patient notes she left AMA 01/29 "because I got pissed off at the GI doctors for sending me home." Patient' s has past medical history of hypertension, anemia, gastric/esophageal ulcers, hiatal hernia, gastric perforation, and multiple abdominal surgeries. She states similar symptoms are similar to prior and has had pain for four weeks. Patient is unable to take medicines due to vomiting. She denies fever, PERSIST LGIB, ABD PAIN, NV. LEFT AMA 01/29 AND 01/24 "BC I GOT PISSED OFF AT THE GI DOCTORS FOR SENDING ME HOME". PMHx HTN, anemia, gastric/esophageal ulcers, hiatal hernia, gastric perforation, multiple abdominal surgeries. CURRENT SX SIM TO PRIOR, PAIN X 4+WEEKS. UNABLE TO TAKE MEDS DUE TO VOMITING. EXAM MILD DIST NONTOXIC ABD +L SIDED ABD PAIN SOFT NO R/G REMAINDER NEG History Per: Patient History/Exam Limitations: no limitations Onset/Duration Of Symptoms: Persistent Current Symptoms Are (Timing): Still Present Quality Of Discomfort: "Pain" Associated Symptoms: Nausea, Vomiting Recent travel outside of the [place]: No Additional History Per: Prior Records Past Medical History Reviewed: Historical Data, Nursing Documentation, Vital Signs Vital Signs: Last Vital Signs Temp 98.1 F 01/30/17 15:15 Pulse 76 01/30/17 17:28 Resp 14 01/30/17 17:28 BP 109/72 01/30/17 17:28 Pulse Ox 99 01/30/17 17:28 - Medical History PMH: Anxiety, Asthma, Depression, Gastrointestinal Ulcer, HTN Surgical History: Cholecystectomy, Endoscopy Family History: States: Unknown Family Hx - Social History Hx Alcohol Use: No Hx Substance Use: No Review Of Systems Constitutional: Negative for: Fever, Chills Cardiovascular: Negative for: Chest Pain Respiratory: Negative for: Shortness of Breath Gastrointestinal: Positive for: Nausea, Vomiting, Abdominal Pain, Other (GI bleeding ) Physical Exam - Physical Exam Appears: Non-toxic, In Acute Distress (patient appears to be in mild distress ) Skin: Warm, Dry Head: Atraumatic Eye(s): bilateral: Normal Inspection Oral Mucosa: Moist Neck: Supple Chest: Symmetrical, No Deformity Cardiovascular: Rhythm Regular Respiratory: Normal Breath Sounds, No Rales, No Rhonchi, No Wheezing Gastrointestinal/Abdominal: Soft, Tenderness (left sided abdominal pain ), No Distention, No Guarding, No Rebound Extremity: Normal ROM, No Tenderness Neurological/Psych: Oriented x3, Normal Speech, Normal Cognition, Normal Motor, Normal Sensation ED Course And Treatment - Laboratory Results Result Diagrams: 01/30/17 17:12 01/30/17 16:29 O2 Sat by Pulse Oximetry: 100 (room air ) - Radiology CXR: Interpreted by Me, Viewed By Me CXR Interpretation: Yes: Other (unchanged since CXR two days prior ) Progress Note: Blood work and CXR were ordered. Patient was given pepcid, zofran , morphine, and IV fluids. Progress - Re-Evaluation Re-evaluation Note: 01/30/17 15:37 D/W DR Darya KELLEY STATES HAD DIFFICULT INTERACTION W PT DURING PRIOR ADMISSIONS. PT HAD LEFT AMA TWICE. REFUSING ADMISSION, REQUESTS ADMISSION TO HOSPITALIST SERVICE 01/30/17 16:53 PT DEMANDING DILAUDID. ADVISED MORPHINE FIRST. REQUESTING BENADRYL PRIOR TO NARCOTIC ADMIN 01/30/17 17:50 NO GI BLEED DURING THIS ER EVAL NO SIG CHANGE LABS COMPARED TO PRIOR SINCE 01/12. PT RECEIVES MONTHLY CLONAZEPAM AND FENTANYL PATCH. PS SLEEPING APPEARS COMFORTABLE VSS. [facility] - Data Reviewed Data Reviewed: Lab, Diagnostic imaging, EKG, Old records, Other (nj rx) - Continuity of Care Discussed patient case with:: Patient Disposition Counseled Patient/Family Regarding: Studies Performed, Diagnosis, Need For Followup - Disposition Referrals: [facility] [Outside] [facility] [Outside] Disposition: HOME/ ROUTINE Disposition Time: 17:51 Condition: IMPROVED Additional Instructions: FOLLOW UP WITH YOUR GI DOCTOR. CONTINUE YOUR FENTANYL PRESCRIBED. Instructions: Abdominal Pain (ED) - Clinical Impression Clinical Impression: Chronic abdominal pain - Scribe Statement The provider has reviewed the documentation as recorded by the Scribe Jenifer Clifford All medical record entries made by the Scribe were at my direction and personally dictated by me. I have reviewed the chart and agree that the record accurately reflects my personal performance of the history, physical exam, medical decision making, and the department course for this patient. I have also personally directed, reviewed, and agree with the discharge instructions and disposition.
[2017-01-30] MEDS ORDERED: Sodium Chloride 0.9% 1,000 ML IV ONE ×2 (15:46)
[2017-01-30 16:44] LABS: ALB/GLOB RATIO 0.9 (1.0-2.1); ALKALINE PHOSPHATASE 86 U/L (38-126); ALT/SGPT 20 U/L (9-52); AST/SGOT 31 U/L (14-36); BILIRUBIN,TOTAL 0.8 mg/dL (0.2-1.3); BLOOD UREA NITROGEN 10 mg/dL (7-17); CALCIUM 8.8 mg/dl (8.6-10.4); CARBON DIOXIDE 28 mmol/L (22-30); CHLORIDE 101 mmol/L (98-107); GFR AFRICAN-AMERICAN > 60; GLUCOSE,RANDOM 99 mg/dL (65-105); SODIUM 140 mmol/L (132-148); TOTAL PROTEIN 6.9 g/dL (6.3-8.3)
[2017-01-30 16:45] LABS: POTASSIUM 4.5 mmol/L (3.6-5.2)
[2017-01-30] MEDS ORDERED: Morphine 4 MG/ML VIAL ONE (16:46)
[2017-01-30] MEDS ORDERED: DiphenhydrAMINE 50 mg/ml Inj IVP STA (16:53)
[2017-01-30 16:56] LABS: INR 1.1
[2017-01-30] MEDS ORDERED: DiphenhydrAMINE 50 mg/ml Inj ONE (16:57)
[2017-01-30 17:19] LABS: BASO # 0.1 K/uL (0.0-0.2); BASO % 0.9 % (0.0-2.0); EOS # 0.4 K/uL (0.0-0.7); EOS % 5.2 % (0.0-4.0); HEMATOCRIT 41.1 % (34.0-47.0); LYMPH # 1.8 K/uL (1.0-4.3); LYMPH % 26.2 % (20.0-40.0); MEAN CELL VOLUME 95.4 fL (81.0-99.0); MEAN CORPUSCULAR HEMOGLOBIN 31.4 pg (27.0-31.0); MEAN CORPUSCULAR HGB CONC 32.9 g/dL (33.0-37.0); MEAN PLATELET VOLUME 6.9 fL (7.2-11.7); MONO # 0.6 K/uL (0.0-0.8); MONO % 9.7 % (0.0-10.0); NRBC % 0.1 % (0.0-2.0); RED CELL DISTRIBUTION WIDTH 15.2 % (11.5-14.5); WHITE BLOOD COUNT 6.7 K/uL (4.8-10.8)
[2017-01-30 17:29] VITALS: BP 109/72; PULSE 76; RESP 14
[2017-01-30 17:53] VITALS: O2SAT 100
--- NOTE | 2017-01-30 17:54 | RAD ---
PROCEDURE: CHEST RADIOGRAPH, 1 VIEW HISTORY: GI Bleeding RO FREE AIR COMPARISON: Portable chest 01/28/2017 FINDINGS: LUNGS: No acute infiltrate or pleural effusion is identified. No pneumothorax. Residual fibrotic changes or linear atelectasis identified in the bilateral bases once again. PLEURA: CARDIOVASCULAR: Cardiac silhouette remains somewhat prominent appearing without pulmonary vascular derangement. OSSEOUS STRUCTURES: No significant abnormalities. VISUALIZED UPPER ABDOMEN: Incidental note is made of surgical clips in the visualized upper abdomen. OTHER FINDINGS: None. IMPRESSION: No acute infiltrate or pleural effusion identified. Fibrotic changes in the bilateral bases mildly versus linear atelectasis. Cardiac silhouette remains mildly prominent.
== END 2017-01-30 18:15 | disposition home or self-care (01) ==
LOC: C.ER 14:50
DX: R10.9 Unspecified abdominal pain (principal); I10 Essential (primary) hypertension; F41.9 Anxiety disorder, unspecified; F17.210 Nicotine dependence, cigarettes, uncomplicated
CPT/HCPCS: 71010; 80053; 85025; 85610; 85730; 86850; 86870; 86900; 96361; 96374; 96375; 99285; J1200; J2270; J2405; J7040

== ENCOUNTER 2017-02-03 18:39 | Emergency (ER) | payer MEDICARE, OTHER ==
[2017-02-03 18:39] VITALS: BMI 14.7
--- NOTE | 2017-02-03 19:57 | C.PDOC ---
History Of Present Illness 46 y/o F c PMHx HTN, anemia, gastric/esophageal ulcers, hiatal hernia, gastric perforation, multiple abdominal surgeries, FTT p/w abdominal pain x 6 weeks. Pain is L sided, sharp, radiates to L upper back, associated with vomiting and diarrhea. Patient was admitted to this hospital for same symptoms twice within past month and underwent endoscopy while admitted. She states her pain was much relieved by dilaudid with benadryl and Zofran. She has left AMA from hospital twice. She states that she continues to have black bowel movements. She denies fever, chills, dyspnea. States she spoke with Dr. Trevin Sweeney today who instructed her to come to the ED. Time Seen by Provider: 02/03/17 19:09 Chief Complaint (Nursing): GI Problem Past Medical History Vital Signs: Last Vital Signs Temp 98.9 F 02/03/17 18:47 Pulse 113 H 02/03/17 18:47 Resp 17 02/03/17 18:47 BP 131/90 02/03/17 18:47 Pulse Ox 100 02/03/17 19:58 - Medical History PMH: Anxiety, Asthma, Back Problems, Depression, Gastrointestinal Ulcer (PER PT ''PERFORATED''), HTN Denies: Chronic Kidney Disease Surgical History: Cholecystectomy, Endoscopy - [facility] Procedures EXCISION OF DUODENUM, ENDO, DIAGN (01/22/17) EXCISION OF MIDDLE ESOPHAGUS, ENDO, DIAGN (01/22/17) EXCISION OF STOMACH, ENDO, DIAGN (01/22/17) EXTIRPATION OF MATTER FROM STOMACH, ENDO (01/22/17) Family History: States: Unknown Family Hx - Social History Hx Alcohol Use: No Hx Substance Use: No - Immunization History Hx Tetanus Toxoid Vaccination: No Hx Influenza Vaccination: No Hx Pneumococcal Vaccination: No Review Of Systems Except As Marked, All Systems Reviewed And Found Negative. Constitutional: Negative for: Fever Cardiovascular: Negative for: Chest Pain Physical Exam - Physical Exam Additional Physical Exam Comments: Constitutional: No acute distress. Head: Normocephalic. Atraumatic. Eyes: PERRL. ENT: Dry mucous membranes. Neck: Supple. Cardiovascular: Mild tachycardia. Radial pulse 2+ bilaterally. Chest: No tenderness. Respiratory: Clear to auscultation bilaterally. GI: Soft. Diffuse tenderness mostly epigastric without guarding. Nondistended. Back: No CVA tenderness. Musculoskeletal: No tenderness or swelling of extremities. Skin: No rash. Neurologic: Alert, no focal deficit. ED Course And Treatment - Laboratory Results Result Diagrams: 02/03/17 20:17 O2 Sat by Pulse Oximetry: 100 Medical Decision Making Medical Decision Making: Check hemoglobin status. Zofran ODT for vomiting. Confirm with Dr. Sweeney on patient's history. Otherwise, patient stable, awaiting GI follow up. Patient's hemoglobin normal. Patient in no distress during ED stay. Will discharge with Zofran, f/u GI, return to ED for worsening pain, fever, intractible vomiting, dyspnea, palpitations, chest pain, near/syncope. Disposition - Disposition Disposition: HOME/ ROUTINE Disposition Time: 20:59 Condition: STABLE Prescriptions: Ondansetron ODT [Zofran ODT] 4 mg PO Q8 #12 odt Instructions: Acute Nausea and Vomiting (ED), Chronic Pain (ED) Forms: [facility] (Serbian) - Clinical Impression Clinical Impression: Abdominal pain, Vomiting
[2017-02-03 21:21] VITALS: BP 112/76; PULSE 78; RESP 18; TEMP 98.5; O2SAT 98
== END 2017-02-03 21:20 | disposition home or self-care (01) ==
LOC: C.ER 18:39
DX: R10.13 Epigastric pain (principal); R11.10 Vomiting, unspecified

== ENCOUNTER 2017-02-06 14:24 | Emergency (ER) | payer MEDICARE, OTHER ==
[2017-02-06 14:31] VITALS: BMI 13.8
[2017-02-06 14:40] VITALS: BP 118/74; PULSE 83; RESP 14; TEMP 98; O2SAT 96
--- NOTE | 2017-02-06 14:44 | C.PDOC ---
History Of Present Illness 46-YEAR-OLD FEMALE, PRESENTS TO THE EMERGENCY DEPARTMENT WITH COMPLAINTS OF RECURRING ABD PAIN, NVD SINCE LAST NIGHT. CURRENT SX SIM TO PRIOR. NO FEVER. SEEN 02/03 FOR SAME. MULT ER VISITS AND PRIOR ADMISSION SINCE 12/2016 FOR SAME. PRIOR RECENT MULTIPLE AMA. PS W STABLE H/H ON RECENT ER VISITS. EXAM NAD NONTOXIC ABD +MILD EPIG TEND SOFT NO R/G REMAINDER NEG Time Seen by Provider: 02/06/17 14:42 Chief Complaint (Nursing): Abdominal Pain History Per: Patient History/Exam Limitations: no limitations Onset/Duration Of Symptoms: Days Current Symptoms Are (Timing): Still Present Severity: Moderate Past Medical History Reviewed: Historical Data, Nursing Documentation, Vital Signs Vital Signs: Last Vital Signs Temp 98.0 F 02/06/17 14:26 Pulse 83 02/06/17 14:26 Resp 14 02/06/17 14:26 BP 118/74 02/06/17 14:26 Pulse Ox 96 02/06/17 15:20 - Medical History PMH: Anxiety, Asthma, Back Problems, Depression, Gastrointestinal Ulcer (PER PT ''PERFORATED''), HTN Denies: Chronic Kidney Disease Surgical History: Cholecystectomy, Endoscopy - [facility] Procedures EXCISION OF DUODENUM, ENDO, DIAGN (01/22/17) EXCISION OF MIDDLE ESOPHAGUS, ENDO, DIAGN (01/22/17) EXCISION OF STOMACH, ENDO, DIAGN (01/22/17) EXTIRPATION OF MATTER FROM STOMACH, ENDO (01/22/17) Family History: States: Unknown Family Hx - Social History Hx Alcohol Use: No Hx Substance Use: No - Immunization History Hx Tetanus Toxoid Vaccination: No Hx Influenza Vaccination: No Hx Pneumococcal Vaccination: No Review Of Systems Except As Marked, All Systems Reviewed And Found Negative. Constitutional: Negative for: Fever, Chills Gastrointestinal: Positive for: Nausea, Vomiting, Abdominal Pain, Diarrhea Musculoskeletal: Negative for: Back Pain Neurological: Negative for: Weakness, Numbness Physical Exam - Physical Exam Appears: Non-toxic, No Acute Distress Skin: Warm, Dry, No Rash Eye(s): bilateral: Normal Inspection Nose: Normal Oral Mucosa: Moist Lips: Normal Appearing Neck: Normal ROM Chest: Symmetrical Cardiovascular: Rhythm Regular, No Murmur Respiratory: Normal Breath Sounds, No Accessory Muscle Use Gastrointestinal/Abdominal: Soft, Tenderness (epigastric), No Guarding, No Rebound Extremity: Normal ROM Neurological/Psych: Oriented x3, Normal Speech ED Course And Treatment O2 Sat by Pulse Oximetry: 96 Progress - Re-Evaluation Re-evaluation Note: 02/06/17 14:52 D/W DR Darya KELLEY: STATES THIS IS NO LONGER HIS PATIENT. CONCERNED FOR DRUG SEEKING BEHAVIOR, PT HAS THREATENED LITIGATION. PT ADVISED OF DEPT PAIN POLICY. OFFERED PO PAIN MEDS, BENADRYL AND REPEATS LABS. 02/06/17 15:09 advised by rn pt eloped prior to lab draw or receiving meds. - Data Reviewed Data Reviewed: Old records Disposition - Disposition Disposition: ELOPEMENT - ER ONLY Disposition Time: 15:10 Condition: STABLE Forms: [employer] (Welsh) - Clinical Impression Clinical Impression: Chronic abdominal pain - Scribe Statement The provider has reviewed the documentation as recorded by the Scribe (Shawanda Carcamo) All medical record entries made by the Scribe were at my direction and personally dictated by me. I have reviewed the chart and agree that the record accurately reflects my personal performance of the history, physical exam, medical decision making, and the department course for this patient. I have also personally directed, reviewed, and agree with the discharge instructions and disposition.
--- NOTE | 2017-02-07 12:34 | CARD ---
APPROVED REPORT EKG Measurement Heart [id number] <Conclusion> Normal sinus rhythm Possible Left atrial enlargement Borderline ECG
== END 2017-02-06 15:07 | disposition left against medical advice (07) ==
LOC: C.ER 14:24
DX: G89.29 Other chronic pain (principal); R10.9 Unspecified abdominal pain